=== PATIENT | female | born 1975 | race Caucasian/White ===

== ENCOUNTER 2022-10-21 15:54 | Emergency (ER) | payer OTHER, SELFPAY ==
--- NOTE | ~2022-10-21 | XR_ITS ---
EXAMINATION: XR hand LT min 3V DATE: 10/21/2022 16:55 INDICATION: Left hand injury and pain. TECHNIQUE: 3 views of left hand were obtained. COMPARISON: None. FINDINGS: Bone alignment is normal. No fracture. 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 IMPRESSION: 1. No fracture. Reviewed, dictated and finalized at location A. IMPRESSION: 1. No fracture.
--- NOTE | 2022-10-21 16:18 | ED.UPPEXIN ---
HPI - Extremity Injury (Upper) General Chief Complaint: Extremity Injury, Upper Stated Complaint: . Time Seen by Provider: 10/21/22 16:05 Source: patient Mode of arrival: ambulatory Limitations: no limitations History of Present Illness HPI narrative: Patient is a 46-year-old female who presents with left palm pain after having full weight push down on an end of rebar. Patient states they were doing a project outdoor and when slipped from rebar causing her hand to force down on top of rebar sticking up. Patient reports she is still able to use hand fully with full sensation, but does report pain when flexing thumb inward. Also reports superficial laceration to right thumb. Patient has taken Tylenol. Related Data Home Medications Medication Instructions Recorded Confirmed atorvastatin 20 mg tablet 20 mg PO DAILY 10/21/22 10/21/22 esomeprazole magnesium 40 mg 40 mg PO DAILY 10/21/22 10/21/22 capsule,delayed release famotidine 40 mg tablet 40 mg PO DAILY 10/21/22 10/21/22 fluticasone propionate 50 2 spray intranasal DAILY 10/21/22 10/21/22 mcg/actuation nasal spray,suspension Allergies Allergy/AdvReac Type Severity Reaction Status Date / Time acetaminophen [From Percocet] Allergy Itching Verified 10/21/22 16:27 adhesive Allergy Blister Verified 10/21/22 16:27 oxycodone [From Percocet] Allergy Itching Verified 10/21/22 16:27 Review of Systems Review of Systems: All systems reviewed & are unremarkable except as noted in HPI and below Constitutional: Constitutional: Denies body ache(s), Denies chills, Denies fatigue, Denies fever(s), Denies headache(s), Denies malaise and Denies weakness Eyes: Eyes: Denies blurry vision, Denies irritation and Denies loss of vision ENT: Denies otalgia, Denies headache(s), Denies nasal discharge, Denies sinus pain and Denies sore throat Cardiovascular: Cardiovascular: Denies chest pain, Denies irregular heart rhythm and Denies dyspnea Respiratory: Respiratory: Denies dyspnea Gastrointestinal: Gastrointestinal: Denies abdominal pain, Denies melena, Denies hematochezia, Denies diarrhea, Denies nausea and Denies vomiting Musculoskeletal: Musculoskeletal: Denies back pain, Denies myalgias and Reports arthralgias Integumentary/Breasts: Skin/Breast: Denies pruritus, Denies rash and Reports wounds Neurologic: Denies headache(s), Denies loss of vision and Denies weakness Psychiatric: Psychiatric: Reports no additional psychiatric complaints Endocrine: Endocrine: Denies fatigue PMFSH Social History Social History Smoking status: Never smoker Alcohol intake: current Comments At time of signature, agree with nursing past medical, surgical, social and family history. There is no relevant family history pertinent to the presenting complaint. Exam Const: General: cooperative, healthy appearing, comfortable, no acute distress and well nourished Nutritional Appearance: well nourished Orientation/consciousness: patient oriented x3 Limitations: no limitations HENMT: Head: normal to inspection, normocephalic and atraumatic Ears: hearing grossly normal bilaterally and external ears normal Face/Nose/Sinus: Normal external nose present, normal facial exam and face symmetric Face and sinus: normal facial exam and face symmetric Mouth: Yes lip normal Eyes: General: appearance normal, both eyes and all related structures Alignment and Position: alignment normal and position normal Periorbital: periorbital findings normal Eyelids: eyelids normal Pupils: Equal, round and reactive pupils present EOM: EOMs intact bilaterally Neck: Neck: normal visual inspection, full ROM and supple Chest: Chest palpation & inspection: normal inspection of the chest Resp: Effort & Inspection: normal respiratory effort and able to speak in complete sentences Auscultation: clear to auscultation bilaterally Cardio: Rate: regular rate Rhythm: regular rhythm Heart sounds: S1 normal heart sound p
[2022-10-21 16:19] VITALS: BP 116/77; PULSE 65; RESP 18; TEMP 36.4; O2SAT 100
[2022-10-21] MEDS: TETANUS,DIPHTHERIA,AC PERTUSSIS ADULT (0.5 ML) BOOSTRIX IM (17:14)
== END 2022-10-21 17:57 | disposition home or self-care (01) ==
PROVIDERS: Emergency Provider Nurse Practitioner Family; PCP Physician Assistant
DX: S61.011A Laceration without foreign body of right thumb without damage to nail, initial encounter (principal); S60.222A Contusion of left hand, initial encounter; X58.XXXA Exposure to other specified factors, initial encounter; Z23 Encounter for immunization; E78.00 Pure hypercholesterolemia, unspecified; K76.0 Fatty (change of) liver, not elsewhere classified
CPT/HCPCS: 12001; 73130; 90471; 90715; 99213; G0463

== ENCOUNTER 2024-01-05 16:19 | Emergency (ER) | payer OTHER, SELFPAY ==
--- NOTE | ~2024-01-05 | XR_ITS ---
EXAM: XR ankle LT min 3V DATE: 01/05/2024 16:44 HISTORY: pain lateral left ankle , injury [employer], rolled ankle running . COMPARISON: None available. FINDINGS: Normal mineralization. No fracture or dislocation. No lytic or blastic lesion. Joint space s are maintained. Achilles and plantar enthesopathy. No erosion or periosteal change. Soft tissues wi thin normal limits. IMPRESSION: No acute osseous finding in the left ankle. Reviewed, dictated and finalized at location K.
--- NOTE | 2024-01-05 16:24 | ED.LOWEXIN ---
HPI - Extremity Injury (Lower) General Chief Complaint: Extremity Injury, Lower Stated Complaint: LT ANKLE PAIN Time Seen by Provider: 01/05/24 16:30 Source: patient, RN notes reviewed and old records reviewed Mode of arrival: ambulatory Limitations: no limitations History of Present Illness HPI Narrative: 48-year-old female presents to the [facility] with complaints of left ankle pain. Patient states that she was running on a trail with her dog when she rolled her ankle twice. States that she fell a 2nd time, did not hit head. No loss of consciousness. Onset (ago): hour(s) Related Data Home Medications Medication Instructions Recorded Confirmed atorvastatin 20 mg tablet 40 mg PO DAILY 10/21/22 01/05/24 Allergies Allergy/AdvReac Type Severity Reaction Status Date / Time acetaminophen [From Percocet] AdvReac Mild Itching Verified 01/05/24 16:25 adhesive AdvReac Mild Blister Verified 01/05/24 16:25 oxycodone [From Percocet] AdvReac Mild Itching Verified 01/05/24 16:25 Review of Systems Review of Systems: All systems reviewed & are unremarkable except as noted in HPI and below Constitutional: Constitutional: Reports no additional constitutional complaints Eyes: Eyes: Reports no additional eye complaints ENT: Reports system reviewed and no additional complaints, except as documented Cardiovascular: Cardiovascular: Reports no additional cardiovascular complaints, Denies chest pain and Denies dyspnea Respiratory: Respiratory: Reports no additional respiratory complaints, Denies chest congestion, Denies cough and Denies dyspnea Gastrointestinal: Gastrointestinal: Reports no additional gastrointestinal complaints, Denies abdominal pain, Denies nausea and Denies vomiting Musculoskeletal: Musculoskeletal: Reports as per HPI Integumentary/Breasts: Skin/Breast: Reports system reviewed and no additional complaints, except as docu Neurologic: Reports system reviewed and no additional complaints, except as documented Psychiatric: Psychiatric: Reports no additional psychiatric complaints Allergic/Immunologic: Allergic/Immunologic: Reports no additional allergic/immunologic complaints PMFSH Past Medical History Medical History High cholesterol Surgical History Surgical History H/O: hysterectomy Social History Social History Smoking status: Never smoker Alcohol intake: current Comments At the time of my signature, I reviewed and agree with the nursing past medical, surgical, social, and family history. There is no relevant family history pertinent to the patient complaint. Exam Const: General: cooperative, healthy appearing, comfortable, no acute distress, well developed, alert and well nourished Nutritional Appearance: well nourished Orientation/consciousness: patient oriented x3 Limitations: no limitations HENMT: Head: normal to inspection Ears: hearing grossly normal bilaterally and external ears normal Face/Nose/Sinus: Normal external nose present, Normal nares present, Normal nasal mucous membranes and turbinates present, normal facial exam and face symmetric Face and sinus: normal facial exam and face symmetric Eyes: General: appearance normal, both eyes and all related structures Alignment and Position: alignment normal Periorbital: periorbital findings normal Neck: Neck: normal visual inspection, full ROM, no lymphadenopathy and no meningeal signs Chest: Chest palpation & inspection: normal inspection of the chest Resp: Effort & Inspection: normal respiratory effort and able to speak in complete sentences Cardio: Rate: regular rate Skin: General skin exam: normal color and no rashes or lesions noted Lesions: no lesions Rashes: no rashes Trauma: no lacerations or abrasions Wounds: no wounds Neuro: General: patient oriented x3,
[2024-01-05 16:29] VITALS: BP 100/73; PULSE 87; RESP 16; TEMP 36.5; O2SAT 99
== END 2024-01-05 17:02 | disposition home or self-care (01) ==
PROVIDERS: Emergency Provider Nurse Practitioner
DX: S93.402A Sprain of unspecified ligament of left ankle, initial encounter (principal); S96.912A Strain of unspecified muscle and tendon at ankle and foot level, left foot, initial encounter; X50.9XXA Other and unspecified overexertion or strenuous movements or postures, initial encounter; Y93.02 Activity, running; E78.00 Pure hypercholesterolemia, unspecified
CPT/HCPCS: 73610; 99213; G0463

== ENCOUNTER 2024-10-23 13:24 | Emergency (ER) | payer OTHER, SELFPAY ==
--- NOTE | ~2024-10-23 | XR_ITS ---
XR foot LT min 3V 10/23/2024 13:38 Indication: Left fifth metatarsal pain Procedure: 4 views left foot Comparison: No prior studies for comparison. Findings: There is anatomic alignment. There are degenerative calcaneal enthesophytes. No acute fract ure, subluxation or dislocation. Lisfranc joint intact. No foreign bodies. Impression: 1: No acute bone or joint abnormality. Reviewed, dictated and finalized at location A. Impression: 1: No acute bone or joint abnormality.
--- NOTE | 2024-10-23 13:25 | ED.LOWEXIN ---
HPI - Extremity Injury (Lower) General Chief Complaint: Extremity Injury, Lower Stated Complaint: foot injury Time Seen by Provider: 10/23/24 13:25 Source: patient and RN notes reviewed Mode of arrival: ambulatory Limitations: no limitations History of Present Illness HPI Narrative: Olive is in a 48-year-old female patient presenting to the clinic today with complaints of foot pain after accidentally kicking a concrete statue in her garage 30 minutes ago. She reports pain is to the distal 4th/5th metatarsal/fifth toe. Has not taken any medications for pain or iced it. She is concerned that it may be broken. Pain with ambulation and causes pain to radiate up foot-sharp shooting pain. Rates pain 7-8/10 with movement or touching. Related Data Home Medications ?Medication ?Instructions ?Recorded ?Confirmed ?Last Taken ?Type atorvastatin 80 mg tablet mg 10/23/24 Unknown History Allergies Allergy/AdvReac Type Severity Reaction Status Date / Time adhesive Allergy Mild Blister Verified 10/23/24 13:34 acetaminophen (From Percocet) AdvReac Mild Itching Verified 10/23/24 13:34 oxycodone (From Percocet) AdvReac Mild Itching Verified 10/23/24 13:34 PMFSH Past Medical History Medical History High cholesterol Surgical History Surgical History H/O: hysterectomy Social History Social History Smoking status: Never smoker Alcohol intake: current Comments At the time of my signature, I reviewed and agree with the nursing past medical, surgical, social, and family history. There is no relevant family history pertinent to the patient complaint. Exam Narrative: General: Well-developed, well nourished, in no apparent distress Head: Normocephalic, atraumatic. Cardio: Regular rate and rhythm, s1 and s2 normal, no murmur appreciated. Resp: Clear to auscultation bilaterally, no rhonchi, rales, wheezing or rubs. Musculoskeletal: No deformity, mild redness and swelling noted to the distal 4/5 metatarsal with tenderness to palpation over this area and tenderness over the left 5th toe, pains worse with movement to the left 5th toe, limited range of motion due to pain, muscle strength strong and equal, peripheral pulse strong, no edema, no cyanosis, normal gait and station Course Course Emergency Course: Portions of this record may have been created with voice recognition software. Level of Care: Express Care Visit Vital Signs Vital signs: Vital Signs Temperature 37.0 C 10/23/24 13:39 Pulse Rate 74 10/23/24 13:39 Respiratory Rate 16 10/23/24 13:39 Blood Pressure 115/79 10/23/24 13:39 Pulse Oximetry 97 10/23/24 13:39 Oxygen Delivery Room Air 10/23/24 13:39 Temperature 37.0 C 10/23/24 13:39 Pulse Rate 74 10/23/24 13:39 Respiratory Rate 16 10/23/24 13:39 Blood Pressure 115/79 10/23/24 13:39 Pulse Oximetry 97 10/23/24 13:39 Oxygen Delivery Room Air 10/23/24 13:39 Vital signs reviewed MDM - Extremity Injury (Lower) MDM Narrative Medical decision making narrative: At the time of visit patient is resting comfortably on the exam table. Patient appears to be nontoxic. Patient reporting pain to the distal 4th/ 5th metatarsal and 5th phalanx after kicking a concrete statue accidentally-30 minutes prior to arrival. Mild redness and swelling noted. Pain is worse with bearing weight, palpation, and moving the 5th toes. CSPM of the left foot normal. Left foot x-ray was ordered. Diagnostics: X-ray of the left foot was performed and negative for any sign of fracture or malalignment. Plan: I suspect patient has left foot/5th toe contusion. Ice pack, David wrap, and postop shoe was given. Supportive measures were discussed with the patient and they voiced understanding discharge instructions and agrees to treatment plan. Return precautions reviewed Differential Diagnosis Differential diagnosis: Likely fracture of toe and other (Foot fracture, foot contusion, soft tissue injury, foot sprain, toe sprain) Imaging Data Radiologist's impression: ITS Impressions Foot X-Ray 10/23/24 13:47 Impression: 1: No acute bone or joint abnormality. Discharge Plan Discharge Clinical Impression: Contusion of foot including toes Qualifiers: Encounter type: initial encounter Laterality: left Qualified Code(s): S90.32XA - Contusion of left foot, initial encounter Patient Disposition: Home Condition: Stable Instructions: Antibiotic Form, Foot Contusion (ED) Additional Instructions: X-ray of the left foot is negative for any sign of fracture or malalignment. Rest, ice, elevate, and wear david wrap and postop shoe as directed Tylenol/motrin for pain as discussed. Gradually bear weight No running or sports until healed. Follow up with your PCP if symptoms persist more than 1 week. Patient Language: Malaysian Prescriptions: No Action atorvastatin 80 mg tablet Follow-up/Referrals: UNKNOWN,DOCTOR [Non-Staff] - Time of Disposition: 13:52 Quality NIHSS Nursing Documentation ED NIHSS nursing documentation: reviewed/agree
--- OUTSIDE RECORDS SUMMARY | 2024-10-23 13:26 | XMS_ITS | Encounter Summary ---
Author Organization [facility] Care Team Providers Care Clinical Services Professional Name Role Phone Guzman Haywood Primary Care Provider [phone] Ju Vaughn NP Primary Care Provider [phone] Encounter Details Date Type Department Care Team (Latest Contact Info) Description 02/09/2017 Orders Only [facility] ProviderMiguel MD [address] [place], [place] [id number] Social History Tobacco Use Types Packs/Day Years Used Date Smoking Tobacco: Never Assessed Comments Unknown Sex and Gender Information Value Date Recorded Sex Assigned at Not on file Legal Sex Female 7:14 PM [employer] Gender Identity Not on file Sexual Orientation Not on file documented as of this encounter Plan of Treatment Not on file documented as of this encounter Procedures Procedure Name Priority Date/Time Associated Diagnosis Comments SCAN - LABS 02/10/2017 12:00 AM [employer]OUTE SUPER[employer]OR CARDIOLOGY REPORT 02/10/2017 12: 00 AM [employer]OUTE SUPERVISOR documented in this encounter Results * SCAN - LABS (02/10/2017 12:00 AM ROUTE SUPERVISOR) Narrative 02/10/2017 12:00 AM ROUTE SUPERVISOR Ordered by an unspecified provider. Historical Provider Final Res ult * CARDIOLOGY REPORT (02/10/2017 12:00 AM ROUTE SUPERVISOR) Anatomical Region Laterality Modality Other Narrative 02/10/2017 12:00 AM ROUTE SUPERVISOR Ordered by an unspecified provider. us Historical Provider [facility] Final Result documented in this encounter Visit Diagnoses Not on filedocumented in this encounter Additional Health Concerns Infection Onset Date Last Indicated Resolved Time COVID: Suspected 01/19/2021 01/22/2021 01/22/2021 6:41 PM CDT COVID: Suspected 03/08/2021 03/08/2021 03/08/2021 9:44 PM ROUTE SUPER[employer]OR COVID: Suspected 03/28/2021 03/28/2021 03/29/2021 2:08 AM ROUTE SUPERVISOR COVID: Suspected 04/19/2021 04/19/2021 04/20/2021 5:27 AM ROUTE SUPERVISOR COVID: Suspected 02/24/2023 02/24/2023 02/24/2023 4:59 PM ROUTE SUPERVISOR documented as of this encounter Care Teams Clinical Services Professional Relationship Specialty Start Date End Date Guzman Haywood PA PCP - General Family Medicine 12/22/18 10/02/23 Ju Vaughn NP [address] [place] [id number] PCP - General Family Medicine 10/03/23 documented as of this encounter
--- OUTSIDE RECORDS SUMMARY | 2024-10-23 13:26 | XMS_ITS | Referral Summary ---
Author Organization [facility] Address [address] [place] [phone] Care Team Providers Care Financial Aid Administrator Name Role Phone Ju Vaughn NP Primary Care Provider [phone] Encounters Date Type Department Care Team Description 10/14/2024 11:00 AM CDT Therapy [facility] Otolaryngology [address] [facility] Building [address] [place] [address] Caro Mays, FARZANEH Hoarseness (Primary Dx) 09/21/2024 11:30 AM CDT Office Visit [facility] Cardiology [address] [place] [address] [phone] Yaniv Mckinney MD Palpitations (Primary Dx); Abnormal EKG; Mixed hyperlipidemia 09/15/2024 Results Follow-Up [facility] Cardiology [address] [place] [address] [phone] Yaniv Mckinney MD Hepatic function panel, Lipid panel, T4, free, Thyroid Function [place] 09/15/2024 12:00 PM CDT Lab [facility] [address] [place] [id number] Palpitations; Mixed hyperlipidemia; Irregular heart beat; Abnormal EKG; Dyspnea on exertion 09/13/2024 10:00 AM CDT Therapy [facility] Otolaryngology [address] [place] [address] 11th [place] [address] [place] [address] Caro Mays, OPERATIONS AND MAINTENANCE MANAGER Hoarseness (Primary Dx) 08/13/2024 10:00 AM CDT Therapy [facility] Otolaryngology [facility] Building [address] [place] [phone] Caro Mays, OPERATIONS AND MAINTENANCE MANAGER Hoarseness (Primary Dx) from Last 3 Months Allergies Active Allergy Reactions Criticality Noted Date Comments Adhesive Other (See comments) Low 08/15/2017 Redness and blisters Cat Dander Rash Medium 04/11/2023 Dog Dander Rash Medium 04/11/2023 Oxycodone-Acetaminoph en Itching Low 11/07/2020 Medications albuterol HFA (PROVENTIL HFA,VENTOLIN HFA,PROAIR HFA) 90 mcg/actuation inhalerIndications :Lower respiratory infection (e.g., bronchitis, pneumonia, pneumonitis, pulmonitis) Inhale 2 puffs every 6 (six) hours as needed for wheezing or shortness of breath 1 each 3 Active atorvastatin (LIPITOR) 80 mg tabletIndications: Mixed hyperlipidemia Take 1 tablet (80 mg total) by mouth nightly 90 tablet 3 5 Active Active Problems Problem Noted Date Diagnosed Date Mucous cyst of tonsil 06/08/2024 Attention or concentration deficit 05/03/2024 Assessment & Plan (05/03/2024 9:55 AM COMMUNITY SERVICE SPECIALIST): Chronic, uncontrolled. Patient to begin Strattera 40 mg daily. Patient to call office if her focus and brain fog do not improve with Strattera use. Follow up in 6 months. Fatty liver 04/11/2023 Assessment & Plan (04/11/2023 8:17 AM COMMUNITY SERVICE SPECIALIST): Noted on ultrasound 09/2022. LFTs have been mildly elevated in 2017 with AST 44, ALT 64; most recent LFTs were normal. -trend LFTs -we will order ultrasound elastography -The natural history of fatty liver disease has been discussed in detail with the patient. The patient understands the potential risks for cirrhosis in the future. RECOMMENDATIONS given include: PEREZ counceling: Discussed risk factors: Increased cholesterol and triglycerides, obesity, PCOS, Type 2 diabetes, hypothyroidism, sleep apnea, and gastric bypass surgery. Encourage healthy diet low in saturated fat and carbs. Establish an excercise routine. Hepatomegaly 04/11/2023 Assessment & Plan (04/11/2023 8:19 AM COMMUNITY SERVICE SPECIALIST): Noted on ultrasound September 2022. Could be secondary to fatty liver. -we will order chronic liver workup to rule out other etiologies Attention deficit disorder 09/03/2022 Assessment & Plan (04/02/2024 9:09 AM COMMUNITY SERVICE SPECIALIST): Chronic, uncontrolled. Patient prescribed Strattera 40 mg daily. Patient provided with education on medication administration and potential side effects. Patient to follow up in one month to reassess ADD symptoms. Assessment & Plan (02/26/2023 10:10 AM COMMUNITY SERVICE SPECIALIST): Offered mental health eval Assessment & Plan (09/03/2022 9:22 AM CDT): Sending to Dr Rodriguez for eval RUQ pain 09/03/2022 Assessment & Plan (09/03/2022 9:31 AM CDT): Suspect gallbladder, will get RUQ us Family history of coronary artery disease 2021 Atypical chest pain 07/11/2021 Mixed hyperlipidemia 07/11/2021 Assessment & Plan (05/03/2024 9:53 AM COMMUNITY SERVICE SPECIALIST): Chronic, improving. Patient to continue on atorvastatin 40 mg daily and low fat diet. Follow up in 6 months. Lab Results Component Value Date CHOL 239 (H) 05/01/2024 CHOL 266 (H) 09/22/2023 CHOL 259 (H) 10/01/2022 Lab Results Component Value Date HDL 60 05/01/2024 HDL 53 09/22/2023 HDL 56 10/01/2022 Lab Results Component Value Date LDLCALC 143 (H) 05/01/2024 LDLCALC 144 (H) 09/22/2023 LDLCALC 145 (H) 10/01/2022 LDLDIRECT 117 (H) 09/01/2013 Lab Results Component Value Date TRIG 203 (H) 05/01/2024 TRIG 344 (H) 09/22/2023 TRIG 290 (H) 10/01/2022 Assessment & Plan (04/02/2024 9:07 AM COMMUNITY SERVICE SPECIALIST): Chronic, improving. Patient to continue on atorvastatin 40 mg daily and low fat diet. Lipid panel to be redrawn. Follow up in 6 months. Lab Results Component Value Date CHOL 266 (H) 09/22/2023 CHOL 259 (H) 10/01/2022 CHOL 258 (H) 08/29/2021 Lab Results Component Value Date HDL 53 09/22/2023 HDL 56 10/01/2022 HDL 46 08/29/2021 Lab Results Component Value Date LDLCALC 144 (H) 09/22/2023 LDLCALC 145 (H) 10/01/2022 LDLCALC 134 (H) 08/29/2021 LDLDIRECT 117 (H) 09/01/2013 Lab Results Component Value Date TRIG 344 (H) 09/22/2023 TRIG 290 (H) 10/01/2022 TRIG 391 (H) 08/29/2021 Assessment & Plan (10/03/2023 10:28 AM CDT): Chronic, uncontrolled. Patient to increase atorvastatin from 20 mg to 40 mg daily. Patient to continue on low fat diet and increase daily exercise. Lipid panel to be redrawn in 3 months. Follow up in 6 months. Lab Results Component Value Date CHOL 266 (H) 09/22/2023 CHOL 259 (H) 10/01/2022 CHOL 258 (H) 08/29/2021 Lab Results Component Value Date HDL 53 09/22/2023 HDL 56 10/01/2022 HDL 46 08/29/2021 Lab Results Component Value Date LDLCALC 144 (H) 09/22/2023 LDLCALC 145 (H) 10/01/2022 LDLCALC 134 (H) 08/29/2021 LDLDIRECT 117 (H) 09/01/2013 Lab Results Component Value Date TRIG 344 (H) 09/22/2023 TRIG 290 (H) 10/01/2022 TRIG 391 (H) 08/29/2021 Assessment & Plan (04/17/2023 9:01 AM COMMUNITY SERVICE SPECIALIST): Patient is to continue present medications, work on diet and exercise as discussed, we did discuss the medications and potential side effects and signs and symptoms that would warrant calling office. Follow up routine. Assessment & Plan (10/01/2022 10:12 AM CDT): healthy diet and exercise Assessment & Plan (09/03/2022 9:24 AM CDT): Off statin, seeing Dr Mckinney Assessment & Plan (07/08/2022 9:22 AM CDT): Patient is to continue present medications, work on diet and exercise as discussed, we did discuss the medications and potential side effects and signs and symptoms that would warrant calling office. Follow up routine. Assessment & Plan (03/12/2022 2:22 PM COMMUNITY SERVICE SPECIALIST): Patient is to restart present medications, work on diet and exercise as discussed, we did discuss the medications and potential side effects and signs and symptoms that would warrant calling office. Follow up routine. Assessment & Plan (09/27/2021 7:04 AM CDT): We did discuss taking a statin patient is doing fish oil in diet I will refer to nutritional medicine follow-up routine Assessment & Plan (08/29/2021 9:47 AM CDT): This is diet controlled we get labs at annual physical Abnormal EKG 07/11/2021 Atypical nevi 06/18/2021 Assessment & Plan (10/01/2022 10:10 AM CDT): Skin exam today Assessment & Plan (03/12/2022 2:22 PM COMMUNITY SERVICE SPECIALIST): We went through the differential diagnosis we agreed to use liquid nitrogen if the lesion does not resolve she will come in for biopsy Assessment & Plan (06/19/2021 3:05 PM CDT): Annual molenap Irregular heart beat 05/28/2021 Assessment & Plan (09/27/2021 7:04 AM CDT): Patient had full cardiac workup will continue to monitor Assessment & Plan (08/29/2021 9:46 AM CDT): Patient is stable seen Cardiology as scheduled for stress test she understands signs and symptoms that would warrant urgent attention Dysphagia 01/20/2021 Assessment & Plan (05/03/2024 9:54 AM COMMUNITY SERVICE SPECIALIST): Chronic, improving with esophageal dilation, currently following with Dr. Chandler TOBAR. Assessment & Plan (09/27/2021 7:04 AM CDT): This is currently resolved will continue to follow Assessment & Plan (08/29/2021 9:46 AM CDT): This is improved she recently had an EGD I am going to change her PPI she will update me in 2 weeks Assessment & Plan (05/28/2021 7:38 AM COMMUNITY SERVICE SPECIALIST): This is currently controlled Assessment & Plan (01/20/2021 6:38 AM CDT): Chronic, stable persistent-recommended appointment with TONY Haywood to discuss dysphagia, to continue to follow-up with ENT, and to take daily anti-reflux medications as directed. Neck pain 01/08/2021 Assessment & Plan (01/08/2021 9:57 AM CDT): OTC aleve, x-rays, ice/heat, option for PT, flexeril at hs Laryngopharyngeal reflux (LPR) 11/21/2020 Assessment & Plan (05/03/2024 9:54 AM COMMUNITY SERVICE SPECIALIST): Chronic, following with Dr. Chandler TOBAR. Currently taking famotidine 40 mg daily. Assessment & Plan (06/19/2021 3:05 PM CDT): Getting EGD Assessment & Plan (05/28/2021 7:38 AM COMMUNITY SERVICE SPECIALIST): As above Hoarseness 11/07/2020 Allergic rhinitis due to animal hair and dander 11/07/2020 Assessment & Plan (09/27/2021 7:03 AM CDT): Continue current medication Assessment & Plan (08/29/2021 9:46 AM CDT): Currently no medications will continue to follow Assessment & Plan (05/28/2021 7:38 AM COMMUNITY SERVICE SPECIALIST): Continue p.r.n. medication Adult BMI 27.0-27.9 kg/sq m 07/11/2020 Assessment & Plan (07/11/2020 8:59 AM CDT): Healthy diet and exercise Routine general medical exam ination at a health care facility 07/10/2020 Assessment & Plan (04/02/2024 9:11 AM COMMUNITY SERVICE SPECIALIST): CBC, CMP, lipid panel ordered. Mammogram last completed: 12/2023 Pap last completed: N/A due to hysterectomy. Colonoscopy last completed: 11/2022 Vaccinations: Tdap vaccine UTD. Flu vaccine given in office today. Repeat wellness exam in one year. Assessment & Plan (10/01/2022 10:12 AM CDT): HEALTHCARE MAINTENANCE updated Assessment & Plan (07/11/2020 9:00 AM CDT): Healthy diet and exercise, mammogram and labs Paresthesia of skin 01/02/2018 MVP (mitral valve prolapse) 02/10/2017 Assessment & Plan (04/02/2024 9:07 AM COMMUNITY SERVICE SPECIALIST): Chronic, patient following with cardiology. Palpitations 02/10/2017 Overview (06/27/2020): this is periodic dn no issues, had full cardiac eval Assessment & Plan (04/17/2023 9:00 AM COMMUNITY SERVICE SPECIALIST): Currently controlled Assessment & Plan (02/26/2023 10:10 AM COMMUNITY SERVICE SPECIALIST): Off and on, had full cardiac work up Assessment & Plan (06/19/2021 3:05 PM CDT): Well controlled Assessment & Plan (01/08/2021 9:58 AM CDT): controlled Assessment & Plan (07/11/2020 8:59 AM CDT): Not an issue Seasonal allergic rhinitis due to pollen 017 Overview (06/27/2020): OTC meds Assessment & Plan (06/19/2021 3:07 PM CDT): Controlled with meds Shortness of breath 02/10/2017 Moderate episode of recurrent major depressive d isorder 12/18/2016 Overview (06/27/2020): no longer on meds Assessment & Plan (04/17/2023 9:00 AM COMMUNITY SERVICE SPECIALIST): Well controlled, no SI/HI, Assessment & Plan (02/26/2023 10:09 AM COMMUNITY SERVICE SPECIALIST): Controlled and appropriate for losing mother, no SI/HI Assessment & Plan (10/01/2022 10:12 AM CDT): No onger an issues Assessment & Plan (09/03/2022 9:24 AM CDT): Appears better off medications, no SI/HI, will follow Assessment & Plan (07/08/2022 9:23 AM CDT): Images from the original note were not included. Recurrent with loss of mother, re-start medications, no SI/HI, has taken in the past The pharmacologic and nonpharmacologic treatment of anxiety/depression were discusses with the patient. Included was a discussion of the current treatment regimens and their proposed mechanism of action concerning brain chemistry. Discussed the role of counseling as an adjunct to medications should we agree to pursue this. The patient is non-suicidal, and agrees to inform us of any change in this status follow up in 4-6 weeks- sooner if any problems Assessment & Plan (03/12/2022 2:22 PM COMMUNITY SERVICE SPECIALIST): This is currently well controlled off med Assessment & Plan (01/08/2021 9:57 AM CDT): Well controlled Assessment & Plan (07/11/2020 8:59 AM CDT): Controlled and mild GERD (gastroesophageal reflux disease) 7 Overview (06/27/2020): no longer on meds Assessment & Plan (04/02/2024 9:06 AM COMMUNITY SERVICE SPECIALIST): Chronic, patient following with GI currently taking famotidine 40 mg daily. Assessment & Plan (04/17/2023 8:57 AM COMMUNITY SERVICE SPECIALIST): Images from the original note were not included. Avoid spicy, fried, greasy foods Keep hydrated with clear liquids Elevate HOB 2- 3 inches Avoid or cut down on caffeines, chocolates, and ETOH No late meals, or heavy meals after 7 pm Reg daily exercise No tight fitting clothing Stop smoking - if smoker Watch for worsening symptoms - ie diarrhea, vomiting, nausea, blood per rectum, vomiting up blood ,fever, arthralgias, rash etc. RTC prn or if new symptoms arise Pt or parent verbalizes understanding Assessment & Plan (04/11/2023 8:18 AM COMMUNITY SERVICE SPECIALIST): Chronic GERD, continues to have heartburn in the mornings and voice changes despite PPI b.i.d. and Pepcid b.i.d. for several months. EGD by Dr. Boo November 2022 with normal esophagus. -continue PPI b.i.d. and Pepcid b.i.d. -RECOMMENDATIONS given include: anti-reflux maneuvers, Avoid acidic foods like oranges and tomatoes., avoidance of spicy foods, avoid eating 3-4 hours before bed, elevation of the head of the bed, and weight loss -we will refer to Dr. Arteaga for consideration of esophageal manometry and pH testing; pending results patient may benefit set from surgical options such as fundoplication Assessment & Plan (02/26/2023 10:09 AM COMMUNITY SERVICE SPECIALIST): Not contyrolled, had EGD, will double nexium x 2 weeks, if this does not help consider manomety Assessment & Plan (10/01/2022 10:11 AM CDT): Not controlled, re-start nexium, h-pylori and EGD Assessment & Plan (09/03/2022 9:24 AM CDT): Images from the original note were not included. Avoid spicy, fried, greasy foods Keep hydrated with clear liquids Elevate HOB 2- 3 inches Avoid or cut down on caffeines, chocolates, and ETOH No late meals, or heavy meals after 7 pm Reg daily exercise No tight fitting clothing Stop smoking - if smoker Watch for worsening symptoms - ie diarrhea, vomiting, nausea, blood per rectum, vomiting up blood ,fever, arthralgias, rash etc. RTC prn or if new symptoms arise Pt or parent verbalizes understanding Assessment & Plan (07/08/2022 9:22 AM CDT): Not controlled, re-start meds Assessment & Plan (03/12/2022 2:22 PM COMMUNITY SERVICE SPECIALIST): Images from the original note were not included. Avoid spicy, fried, greasy foods Keep hydrated with clear liquids Elevate HOB 2- 3 inches Avoid or cut down on caffeines, chocolates, and ETOH No late meals, or heavy meals after 7 pm Reg daily exercise No tight fitting clothing Stop smoking - if smoker Watch for worsening symptoms - ie diarrhea, vomiting, nausea, blood per rectum, vomiting up blood ,fever, arthralgias, rash etc. RTC prn or if new symptoms arise Pt or parent verbalizes understanding Assessment & Plan (09/27/2021 7:04 AM CDT): Images from the original note were not included. Avoid spicy, fried, greasy foods Keep hydrated with clear liquids Elevate HOB 2- 3 inches Avoid or cut down on caffeines, chocolates, and ETOH No late meals, or heavy meals after 7 pm Reg daily exercise No tight fitting clothing Stop smoking - if smoker Watch for worsening symptoms - ie diarrhea, vomiting, nausea, blood per rectum, vomiting up blood ,fever, arthralgias, rash etc. RTC prn or if new symptoms arise Pt or parent verbalizes understanding Assessment & Plan (08/29/2021 9:46 AM CDT): This is uncontrolled she had essentially a normal EGD in the last couple weeks I am going to change her PPI as her symptoms have been worsening she will update me in 2 weeks she is on a GERD diet Assessment & Plan (06/19/2021 3:05 PM CDT): CPM, getting EGD Assessment & Plan (05/28/2021 7:38 AM COMMUNITY SERVICE SPECIALIST): This is controlled with diet and meds needs a refill on medication Assessment & Plan (01/08/2021 9:57 AM CDT): Images from the original note were not included. Avoid spicy, fried, greasy foods Keep hydrated with clear liquids Elevate HOB 2- 3 inches Avoid or cut down on caffeines, chocolates, and ETOH No late meals, or heavy meals after 7 pm Reg daily exercise No tight fitting clothing Stop smoking - if smoker Watch for worsening symptoms - ie diarrhea, vomiting, nausea, blood per rectum, vomiting up blood ,fever, arthralgias, rash etc. RTC prn or if new symptoms arise Pt or parent verbalizes understanding Assessment & Plan (07/11/2020 8:59 AM CDT): Images from the original note were not included. Avoid spicy, fried, greasy foods Keep hydrated with clear liquids Elevate HOB 2- 3 inches Avoid or cut down on caffeines, chocolates, and ETOH No late meals, or heavy meals after 7 pm Reg daily exercise No tight fitting clothing Stop smoking - if smoker Watch for worsening symptoms - ie diarrhea, vomiting, nausea, blood per rectum, vomiting up blood ,fever, arthralgias, rash etc. RTC prn or if new symptoms arise Pt or parent verbalizes understanding Resolved Problems Problem Noted Date Diagnosed Date Resolved Date Screening for colon cancer 04/11/2023 1 06/03/2023 Assessment & Plan (04/11/2023 8:19 AM COMMUNITY SERVICE SPECIALIST): Normal colonoscopy by Dr. Boo November 2022. -repeat colonoscopy November 2032 Tinea corporis 06/05/2021 03/29/2024 Assessment & Plan (06/05/2021 2:59 PM COMMUNITY SERVICE SPECIALIST): - likely ring worm - will tx with clotrimazole - pt to f/u with derm for further eval. Eustachian tube disorder, left 01/20/2021 03/29/2024 Assessment & Plan (01/20/2021 6:39 AM CDT): Acute-started on prednisone 20 mg once daily x 5 days and Sudafed as directed as needed for the next 3-5 days. Advised can start Flonase OR Nasacort 2 sprays each nostril daily x 4 weeks. Recommended follow-up with PCP if symptoms worsen, don't improve, or new symptoms develop. Acute pain of left knee 01/08/202103/08 Assessment & Plan (01/08/2021 9:59 AM CDT): X-ray and aleve, option for PT Right foot pain 06/27/2020 04/02/2024 Assessment & Plan (06/27/2020 2:39 PM CDT): Pain after jumping about 3 feet, most her pain is upper anterior foot, she had immediate pain Post-operative state 10/07/2017 024 Immunizations Immunization Administration Dates Next Due Influenza, Quadrivalent, Spl it, Intramuscular 12/29/2018 Influenza, Quadrivalent, Spl it, Preservative Free, Intramuscular 01/08/2021 Influenza, Trivalent, IM (MDV) 03/22/2015 Influenza, Trivalent, Preser vative Free, Intramuscular 03/29/2024 Influenza, Unspecified 03/17/2023(Deferr ed: Patient decision),02/26/2023(Deferred: Patient decision),03/06/2022(Deferred: Patient decision),02/26/2022(Deferred: Patient decision),02/07/2022(Deferred: Patient decision),01/08/2021,03/23/2020,2018 Pfizer SARS-CoV-2 Monovalent Vaccination (12+ Yrs) PURPLE 02/11/2021,06/19/2020,05/29/2020 Tdap 10/29/2023,10/21/2022 Social History Tobacco Use Types Packs/Day Years Used Date Smoking Tobacco: Never Smokeless Tobacco: Never AUDIT-C Answer Date Recorded Q1: How often do you have a drink containing alc ohol? Never 04/17/2023 Average Number of Drinks Not on file 024 Frequency of Binge Drinking Not on file 04/07 PHQ-2 Answer Date Recorded PHQ-2 Total Score (If total score is 3 or more points, staff should administer the PHQ-9) 0 03/29/2024 Personal Safety Answer Date Recorded Have you ever been in or are you currently in a harmful physical or emotional relationship or is someone making you feel afraid or unsafe? Denies 11/21/2022 Comments No Sex and Gender Information Value Date Recorded Sex Assigned at Not on file Legal Sex Female 7:14 PM COMMUNITY SERVICE SPECIALIST Gender Identity Not on file Sexual Orientation Not on file Last Filed Vital Signs Vital Sign Reading Time Taken Comments Blood Pressure 118/64 09/21/2024 12:29 PM CDT Pulse 79 09/21/2024 12:29 PM CDT Temperature 36.7 C (98 F) 06/08/2024 2:27 PM COMMUNITY SERVICE SPECIALIST Respiratory Rate 18 05/03/2024 8:39 AM COMMUNITY SERVICE SPECIALIST Oxygen Saturation 95% 06/17/2024 7:51 AM CDT Inhaled Oxygen Concentration - - Weight 82.8 kg (182 lb 9.6 oz) 09/21/2024 12:29 PM CDT Height 172.7 cm (5' 7.99) 09/21/2024 12:29 PM C DT Body Mass Index 27.77 09/21/2024 12:29 PM CDT Plan of Treatment Not on file Medical Devices Implanted Type Area Agency Service Coordinator Device Identifier Shelf Expiration Date Model / Serial / Lot Bladder Sling Bladder Cadaver Patch Bladder Bovine Collagen Patch N/A: Bladder Procedures Procedure Name Priority Date/Time Associated Diagnosis Comments THYROID FUNCTION CASCADE Routine 09/15/2024 12:08 PM CDT Palpitations Mixed hyperlipidemia Irregular heart beat Abnormal EKG Dyspnea on exertion T4, FREE Routine 09/15/2024 12:08 PM CDT Palpitations Mixed hyperlipidemia Irregular heart beat Abnormal EKG Dyspnea on exertion LIPID PANEL Routine 09/15/2024 12:08 PM CDT Palpitations Mixed hyperlipidemia Irregular heart beat Abnormal EKG Dyspnea on exertion HEPATIC FUNCTION PANEL Routine 09/15/2024 12:08 PM CDT Palpitations Mixed hyperlipidemia Irregular heart beat Abnormal EKG Dyspnea on exertion SCREENING MAMMOGRAM BILATERAL W JONO Schedule Routine, Read Routine (OP Routine) 12/16/2023 12:52 PM CDT Encounter for screening mammogram for malignant neoplasm of breast HEPATITIS PANEL, ACUTE Routine 04/11/2023 9:10 AM COMMUNITY SERVICE SPECIALIST Hepatomegaly COLONOSCOPY 11/21/2022 7:58 AM CDT from Last 3 Months or Most Recently Relevant to Health Maintenance Results * Thyroid Function [place] (09/15/2024 12:08 PM CDT) TSH 2.50 0.30 - 4.20 mcIUnit/mL Comment:Testing performed by : [facility], [address] [place] [address], [place]., [address] Blood 09/15/2024 12:0 8 PM CDT 09/15/2024 12:48 PM CDT Yaniv Mckinney MD LAB BLOOD ORDERABLES Final Result Performing Organization Address City/[facility] Co de Phone Number JESSICA [facility] [place] [address] * T4, free (09/15/2024 12:08 PM CDT) [facility] Free T4 1.16 0.90 - 1.70 ng/dL Comment:Testing performed by : [address] [address] Blood 09/15/2024 12:0 8 PM CDT 09/15/2024 12:48 PM CDT Yaniv Mckinney MD LAB BLOOD ORDERABLES Final Result Performing Organization Address [facility] Co de Phone Number JESSICA [address] [address] * Hepatic function panel (09/15/2024 12:08 PM CDT) [facility] Bilirubin, total 0.6 0.1 - 1.2 mg/dL Comment:Testing performed by : [address] [address] Bilirubin, direct 0.1 0.1 - 0.3 mg/dL JESSICA Comment:Testing performed by : [address] [address] Protein, pl 7.1 6.5 - 8.5 g/dL JESSICA Comment:Testing performed by : [address] [address] Albumin 4.3 3.5 - 5.0 g/dL JESSICA Comment:Testing performed by : [address] [address] Alk phos 116 40 - 130 Units/L JESSICA Comment:Testing performed by : [address] [address] ALT 21 7 - 45 Units/L JESSICA Comment:Testing performed by : [address] [address] AST 25 10 - 45 Units/L JESSICA STONE Comment:Testing performed by : [address] [address] Blood 09/15/2024 12:0 8 PM CDT 09/15/2024 12:48 PM CDT us Yaniv Mckinney MD LAB BLOOD ORDERABLES Final Result JESSICA [address] [facility] Department [place] [address] * Lipid panel (09/15/2024 12:08 PM CDT) Cholesterol 184 30 - 199 mg/dL Comment: Interpretive Data Ages < or = 19 years Acceptable: <170 mg/dL Borderline high: 170-199 mg/dL High: >or= 200 mg/dL Ages > or = 20 years Desirable: <200 mg/dL Borderline high: 200-239 mg/dL High: >or= 240 mg/dL Literature References: 1. Expert Panel on Integrated Guidelines for Cardiovascular Health and Risk Reduction in Children and Adolescents. Pediatrics 2011;128:S213 2. NCEP Expert Panel. Circulation 2004;110:227 Current Interpretive Data was last revised on 2017. Testing performed by: [address] [address] Triglycerides 120 <=149 mg/dL JESSICA STONE Comment: Interpretive Data Ages < or = 9 years Acceptable: <75 mg/dL Borderline high: 75-99 mg/dL High: >or= 100 mg/dL Ages 10 to 20 years Acceptable: <90 mg/dL Borderline high: 90-129 mg/dL High: >or= 130 mg/dL Ages > or = 20 years Desirable: <150 mg/dL Borderline high: 150-199 mg/dL High: 200-499 mg/dL Very high: >or= 499 mg/dL Literature References: 1. Expert Panel on Integrated Guidelines for Cardiovascular Health and Risk Reduction in Children and Adolescents. Pediatrics 2011;128:S213 2. NCEP Expert Panel. Circulation 2004;110:227 Current Interpretive Data was last revised on 2017. Testing performed by: [address] [address] HDL 58 >=40 mg/dL JESSICA Comment: Interpretive Data Ages < or = 19 years Acceptable: >45 mg/dL Borderline low: 40-45 mg/dL Low: <40 mg/dL Ages > or = 20 years Desirable: >or= 60 mg/dL Low: <40 mg/dL Literature References: 1. Expert Panel on Integrated Guidelines for Cardiovascular Health and Risk Reduction in Children and Adolescents. Pediatrics 2011;128:S213 2. NCEP Expert Panel. Circulation 2004;110:227 Current Interpretive Data was last revised on 2017. Testing performed by: [facility], [address] [place] [address]., [id number] LDL, calculated 105 <=129 mg/dL JESSICA STONE Comment: Interpretive Data Ages < or = 19 years Acceptable: <110 mg/dL Borderline high: 110-129 mg/dL High: >or= 130 mg/dL Ages > or = 20 years Optimal: <100 mg/dL Near optimal: 100-129 mg/dL Borderline high: 130-159 mg/dL High: >160 mg/dL Calculated using the Danilo LDL-C estimating equation. This equation was implemented on 2023. Prior to this date LDL-C was estimated using the Friedewald equation. Literature References: 1. Expert Panel on Integrated Guidelines for Cardiovascular Health and Risk Reduction in Children and Adolescents. Pediatrics 2011;128:S213 2. NCEP Expert Panel. Circulation 2004;110:227 3. Danilo Ayala et al. KACIE Cardiol. 2019August 05;5(5):540-548. doi: 10.1001/jamacardio.2020.0013 Current Interpretive Data was last revised on 2023. Testing performed by: [facility], [address] [place] [address]., [id number] Non-HDL Cholesterol 126 mg/dL JESSICA Comment: Interpretive Data Ages < or = 19 years Acceptable: <120 mg/dL Borderline high: 120-144 mg/dL High: >145 mg/dL Ages > or = 20 years When triglycerides are >200 mg/dL, Non-HDL cholesterol is a secondary target of therapy with treatment goals that are 30 mg/dL greater than the LDL cholesterol target. Literature References: 1. Expert Panel on Integrated Guidelines for Cardiovascular Health and Risk Reduction in Children and Adolescents. Pediatrics 2011;128:S213 2. NCEP Expert Panel. Circulation 2004;110:227 Current Interpretive Data was last revised on 2017. Testing performed by: [facility], [address] [place] [address]., [id number] Chol/HDL ratio 3 JESSICA CHASE Comment:Testing performed by : [facility], [address] [place] [address]., [id number] Blood 09/15/2024 12:0 8 PM CDT 09/15/2024 12:48 PM CDT us Yaniv Mckinney MD LAB BLOOD ORDERABLES Final Result JESSICA CHASE [address] [facility] Department [place] [address] * Screening Mammogram Bilateral W Jono (12/16/2023 12:52 PM CDT) Anatomical Region Laterality Modality Breast Bilateral Mammography Impressions 12/16/2023 1:24 PM CDT BI-RADS ATLAS category (overall): 1 - Negative There is no mammographic evidence of malignancy. A 1 year screening mammogram is recommended. The patient has been or will be contacted. We recommend annual screening mammography for women at average risk of breast cancer beginning at age 40, based on guidelines of the [employer] (ACR Practice Parameter for the Performance of Screening and Diagnostic Mammography) and [employer]. For women with and elevated risk of breast cancer, please refer to the ACR Practice Parameter for specific screening recommendations. The patient will be entered into a reminder system with a target due date of 1 year for her next screening exam. Narrative 12/16/2023 1:24 PM CDT Screening Mammogram Bilateral W Jono: 12/16/23 The study was acquired using full field digital technology and interpreted from soft copy. 2D digital mammographic views, as well as 3D digital tomosynthesis were performed in the CC and MLO projections. CLINICAL: Encounter for screening mammogram for malignant neoplasm of breast (Mammogram ordered.). No relevant medical history has been documented for this patient. No known family history of breast cancer. COMPARISONS: 08/30/2022 Screening Mammogram Bilateral W Jono 05/29/2021 Screening Mammogram Bilateral W Jono 05/05/2018 Screening Mammogram Bilateral W Jono 06/24/2016 Screening Mammogram Bilateral W Jono BREAST TISSUE: There are scattered areas of fibroglandular density. FINDINGS: No suspicious masses, suspicious calcifications, or other suspicious findings are seen within either breast. There has been no suspicious change. Ju Vaughn NP IMG MAMMO PROCEDURES Final Res ult * Hepatitis panel, acute Blood (04/11/2023 9:10 AM COMMUNITY SERVICE SPECIALIST) Hep A IgM Nonreactive Nonreactive JESSICA Comment: Interpretive Data: If Hep A IgM Ab is reported as Equivocal, a new sample should be drawn in two weeks for testing. Current interpretive data was last revised on 19. Hep B core IgM Nonreactive Nonreactive JESSICA Comment: Interpretive Data If HepB Core IgM Ab is reported as Equivocal, a new sample should be drawn in two weeks for testing. Current interpretive data was last revised on 19. Hep C Ab Nonreactive Nonreactive JESSICA Comment: Antibodies to HCV not detected. Does NOT exclude the possibility of recent exposure to HCV. Current interpretive data was last revised on 21 Interpretive Data Nonreactive: Antibodies to HCV not detected. Does NOT exclude the possibility of recent exposure to HCV. Equivocal: Equivocal for HCV antibodies. Supplemental molecular testing will be automatically performed to determine infection status in accordance with current CDC screening recommendations. Reactive: Positive for HCV antibodies. This may represent current or past HCV infection. Supplemental molecular testing will be automatically performed to determine current infection status in accordance with current CDC screening recommendations. Interpretive data was last revised on 2019. HepBsAg Nonreactive Nonreactive JESSICA Blood 04/11/2023 9:10 AM COMMUNITY SERVICE SPECIALIST 04/11/2023 9:22 AM COMMUNITY SERVICE SPECIALIST Rudy Brantley MD LAB MICROBIOLOGY - GENERAL ORDER FAVIOLA Final Result JESSICA [address] [facility] Department [place] [address] * COLONOSCOPY (11/21/2022 7:58 AM CDT) Anatomical Region Laterality Modality Other Narrative Procedure Note Geovany Boo DO - 11/21/2022 7:58 AM CDT [facility] GI ENDOSCOPY Patient Name: Olive Messer Procedure Date: 11/21/2022 7:58 AM Date of : 1975 Admit Type: Outpatient Age: 46 Gender: Female Attending MD: Geovany Boo D.O. Room: [facility] ENDOSCOPY ROOM 05 Note Status: Finalized Procedure: Colonoscopy Indications: Screening for colorectal malignant neoplasm Referring MD: Guzman Haywood PA-C Providers: Geovany Boo D.O. Medicines: See the Anesthesia note for documentation of the administered medications Complications: No immediate complications. Estimated Blood Loss: Estimated blood loss: none. Procedure: The benefits, risks and alternatives of theprocedure and sedation were discussed and informed consentwas obtained. All questions were answered. Please referto the signed informed consent document in the medical record. The scope was passed under direct vision.The CF-[id number] colonoscope was introduced through theanus and advanced to the cecum, identified byappendiceal orifice and ileocecal valve. The colonoscopy was performed without difficulty. The patient tolerated the procedure well. The quality of the bowel preparation was good. Prep was administered in asplit dose. Findings: The entire examined colon appeared normal on direct and retroflexion views. Impression: - The entire examined colon is normal on direct and retroflexion views. - No specimens collected. Recommendation: - Patient has a contact number available for emergencies. The signs and symptoms of potential delayed complications were discussed with thepatient. Return to normal activities tomorrow. Written discharge instructions were provided to thepatient. - Resume previous diet. - Continue present medications. - [facility] Geovany Boo D.O. 11/21/2022 8:28:09 AM Number of Addenda: 0 Note Initiated On: 11/21/2022 7:58 AM Recognized by the [place] [employer] for promoting quality in endoscopy Geovany Boo DO ENDOSCOPY PROCEDURES Fin al Result from Last 3 Months or Most Recently Relevant to Health Maintenance Insurance [facility] HMO/POS [employer] COVENTRY HMO/POS AETNA COVENTRY HMO/POS Care Teams Financial Aid Administrator Relationship Specialty Start Date End Date Ju Vaughn NP [address] [place] [id number] PCP - General Family Medicine 10/03/23
--- OUTSIDE RECORDS SUMMARY | 2024-10-23 13:26 | XMS_ITS | Clinical Summary ---
Author Organization [facility] Address [address] [place] [id number] Care Team Providers Care Associate Programmer Name Role Phone Ju Vaughn FRONT END MANAGER Primary Care Provider [phone] Allergies Active Allergy Reactions Criticality Noted Date Comments Dog Dander Rash Medium 04/11/2023 Dog Epithelium (Canis Lupus Familiaris) Hives 06/24/2023 Oxycodone-Acetaminophe n Itching Low 11/07/2020 Tape Other (see comment) 08/15/2017 Redness and blisters Medications loratadine (CLARITIN) 10 MG tablet Take 1 tablet (10 mg total) by mouth as needed for Allergies. Active albuterol sulfate HFA 108 (90 Base) MCG/ACT inhaler Inhale 2 puffs into the lungs as needed. 02/24/2023 Active atorvastatin (LIPITOR) 40 MG tablet Take 1 tablet (40 mg total) by mouth daily. 10/03/2023 Active famotidine (PEPCID) 20 MG tablet Take 1 tablet (20 mg total) by mouth daily. 01/28/2024 Active atomoxetine (STRATTERA) 40 MG capsuleIndicati ons:HASN'T STARTED TAKING YET Take 1 capsule (40 mg total) by mouth daily. Indications: HASN'T STARTED TAKING YET 03/29/2024 Active Active Problems Problem Noted Date Diagnosed Date GERD (gastroesophageal reflux disease) 4 Immunizations Immunization Administration Dates Next Due Tdap (Boostrix) 10/29/2023 Family History Medical History Relation Comments Cancer Father Arthritis Mother Asthma Mother Cancer Mother Depression Mother Relation Status Comments Father Mother Social History Tobacco Use Types Packs/Day Years Used Date Smoking Tobacco: Never Smokeless Tobacco: Never Tobacco Cessation:Counseling Given: Not Answered Alcohol Use Standard Drinks/Week Comments No 0 (1 standard drink = 0.6 oz pur e alcohol) B1300 Health Literacy Answer Date Recor ded How often do you need to hav e someone help you when you read instructions, pamphlets, or other written material from your doctor or pharmacy? Never 08/04/2023 [facility] Utilities Answer Date Recorded In the past 12 months has e [email or web address], gas, oil, or water [employer] threatened to shut off services in your home? No 08/04/2023 Humiliation, Afraid, Rape, and Kick questionnair e Answer Date Recorded Within the last year, have y ou been afraid of your partner or ex-partner? No 08/04/2023 Within the last year, have y ou been humiliated or emotionally abused in other ways by your partner or ex-partner? No Within the last year, have y ou been kicked, hit, slapped, or otherwise physically hurt by your partner or ex-partner? No 08/04/2023 Within the last year, have y ou been raped or forced to have any kind of sexual activity by your partner or ex-partner? No 08/04/2023 Overall Financial Resource Strain (CARDIA) Answe r Date Recorded How hard is it for you to pa y for the very basics like food, housing, medical care, and heating? Not hard at all 08/04/2023 [facility] [employer] Occupat ional Health - Occupational Stress Questionnaire Answer Date Recorded Do you feel stress - tense, restless, nervous, or anxious, or unable to sleep at night because your mind is troubled all the time - these days? Not at all 08/04/2023 Exercise Vital Sign Answer Date Recorde d On average, how many days pe r week do you engage in moderate to strenuous exercise (like a brisk walk)? 2 days 08/04/2023 On average, how many minutes do you engage in exercise at this level? 40 min 08/04/2023 Hunger Vital Sign Answer Date Recorded Within the past 12 months, y ou worried that your food would run out before you got the money to buy more. Never true 08/04/19 24 Within the past 12 months, t he food you bought just didn't last and you didn't have money to get more. Never true 08/04/2023 PRAPARE - Transportation Answer Date Re corded In the past 12 months, has l ack of transportation kept you from medical appointments or from getting medications? No 07/07 In the past 12 months, has l ack of transportation kept you from meetings, work, or from getting things needed for daily living? No 08/04/2023 Housing Stability Vital Sign Answer Mauricio e Recorded In the last 12 months, was t here a time when you were not able to pay the mortgage or rent on time? No 08/04/2023 In the past 12 months, how m any times have you moved where you were living? 1 08/04/2023 At any time in the past 12 m [facility], were you homeless or living in a nursing home (including now)? No 08/04/2023 Comments No Sex and Gender Information Value Date Recorded Sex Assigned at Female 04/27/2024 6:21 AM FOREST FIRE FIGHTERS DISPATCHER Legal Sex Female 6:48 PM CDT Gender Identity Not on file Sexual Orientation Not on file Last Filed Vital Signs Vital Sign Reading Time Taken Comments Blood Pressure 118/81 04/27/2024 8:20 AM FOREST FIRE FIGHTERS DISPATCHER Pulse 96 04/27/2024 7:54 AM FOREST FIRE FIGHTERS DISPATCHER Temperature 36.3 C (97.3 F) 04/27/2024 7:50 AM FOREST FIRE FIGHTERS DISPATCHER Respiratory Rate 15 04/27/2024 7:50 AM FOREST FIRE FIGHTERS DISPATCHER Oxygen Saturation 95% 04/27/2024 8:20 AM FOREST FIRE FIGHTERS DISPATCHER Inhaled Oxygen Concentration - - Weight 83.9 kg (185 lb) 04/13/2024 11:54 AM FOREST FIRE FIGHTERS DISPATCHER Height 175.3 cm (5' 9.02) 04/13/2024 11:[address] Body Mass Index 27.31 04/13/2024 11:54 AM FOREST FIRE FIGHTERS DISPATCHER Plan of Treatment Health Maintenance Due Date Last Done Comments Colorectal Cancer Screening Colonoscopy (10 Years) 1975 Annual Physical 12/08/1978 Hepatitis C 12/08/1993 Hepatitis B Vaccines (1 of 3 - 19+ 3-dose series) 12/08/1994 COVID-19 Vaccine ( season) 2023 02/08/2021, 06/19/2020, 05/29/2020 Mammogram Screening 12/15/2025 12/16/2023, 08/30/2022, 05/29/2021, Additional history exists DTaP, Tdap and Td Vaccines (3 - Td or Tdap) 10/28/2033 10/29/2023, 10/21/2022 Meningococcal B Vaccine Aged Out No l onger eligible based on patient's age to complete this topic Meningococcal Vaccine Aged Out No monie april eligible based on patient's age to complete this topic Pneumococcal Vaccine: Pediatrics (0 to 5 Years) and At-Risk Patients (6 to 49 Years) Aged Out No longer eligible based on patient's age to complete this topic RSV Immunizations Under 20 Months Aged Out No longer eligible based on patient's age to complete this topic Medical Devices Implanted Type Area Cow Trimmer Device Identifier Shelf Expiration Date Model / Serial / Lot Brown Cf Capsule Delivery Dev Implanted:Qty: 1 on 06/24/2023 by Figueroa Arteaga DO at [facility] N/A: Esophagus [id number] 07/24/2024 / [id number] / [id number] Capsule Ph Brown Calibration Free Reflux Delivery System - [id number] Implanted:Qty: 1 on 04/27/2024 by Figueroa Arteaga DO at [id number] / / Insurance AETNA Advance Directives * Full Code (Latest Code Status on File) Date Activated Date Inactivated Comments 08/04/2023 2:11 PM 08/05/2023 2:45 PM Care Teams Associate Programmer Relationship Specialty Start Date End Date Ju Vaughn, FRONT END MANAGER PCP - General NURSE PRACTITIONER 09/02/23
--- OUTSIDE RECORDS SUMMARY | 2024-10-23 13:26 | XMS_ITS | Clinical Summary ---
Author Organization [facility] Address [address] [place] [address] Care Team Providers Care Mold Capper Helper Name Role Phone Unavailable Primary Care Provider Unavailabl e Social History Tobacco Use Types Packs/Day Years Used Date Smoking Tobacco: Never Assessed Comments Unknown Sex and Gender Information Value Date Recorded Sex Assigned at Not on file Legal Sex Female 9:10 AM PATIENT SUPPORT ASSOCIATE Gender Identity Not on file Sexual Orientation Not on file Plan of Treatment Health Maintenance Due Date Last Done Comments Hepatitis C Virus (HCV) Screening 1975 TdaP Immunization 1975 Hepatitis B Immunization (1 of 3 - 19+ 3-dose series) 12/08/1994 Pap Smear 12/08/1996 Cervical Cancer Screening (CCS) 12/08/2005 HPV/Cotest 12/08/2005 Discussion re Starting/Frequ ency of Mammograms 2015 Colonoscopy 12/08/2020 Colorectal Cancer Screening 12/08/2020 Influenza Immunization (#1) 2023 SARS-COV-2 Immunization ( season) 2023 Respiratory Syncytial Virus (RSV) Immunization (Adult) (1 - 1-dose 75+ series) 12/08/2050 Meningococcal Immunization (ACWY) Aged Out No longer eligible based on patient's age to complete this topic Pneumococcal Immunization Combined Aged Out No longer eligible based on patient's age to complete this topic Rotavirus Immunization Aged Out No lo nger eligible based on patient's age to complete this topic Insurance [employer] on file
--- OUTSIDE RECORDS SUMMARY | 2024-10-23 13:26 | XMS_ITS | Clinical Summary ---
Author Organization [facility] Address [address] [place] [id number] Care Team Providers Care Field Human Resources Manager Name Role Phone Ju Vaughn NP Primary Care Provider [phone] Allergies Active Allergy Reactions Criticality Noted Date [...] 05/03/2024 Assessment & Plan (05/03/2024 9:55 AM ASSEMBLY MEMBER): Chronic, uncontrolled. Patient to begin Strattera 40 mg daily. Patient to call office if her focus and brain fog do not improve with Strattera use. Follow up in 6 months. Fatty liver 04/11/2023 Assessment & Plan (04/11/2023 8:17 AM ASSEMBLY MEMBER): Noted on ultrasound 09/2022. LFTs have been [...] 04/11/2023 Assessment & Plan (04/11/2023 8:19 AM ASSEMBLY MEMBER): Noted on ultrasound September 2022. Could be secondary to fatty liver. -we will order chronic liver workup to rule out other etiologies Attention deficit disorder 09/03/2022 Assessment & Plan (04/02/2024 9:09 AM ASSEMBLY MEMBER): Chronic, uncontrolled. Patient prescribed Strattera 40 mg daily. Patient provided with education on medication administration and potential side effects. Patient to follow up in one month to reassess ADD symptoms. Assessment & Plan (02/26/2023 10:10 AM ASSEMBLY MEMBER): Offered mental health eval Assessment & Plan (09/03/2022 9:22 AM CDT): Sending to Dr Rodriguez for eval RUQ pain 09/03/2022 Assessment & Plan (09/03/2022 9:31 AM CDT): Suspect gallbladder, will get RUQ us Family history of coronary artery disease 2021 Atypical chest pain 07/11/2021 Mixed hyperlipidemia 07/11/2021 Assessment & Plan (05/03/2024 9:53 AM ASSEMBLY MEMBER): Chronic, improving. Patient to continue on atorvastatin [...] 10/01/2022 Assessment & Plan (04/02/2024 9:07 AM ASSEMBLY MEMBER): Chronic, improving. Patient to continue on atorvastatin [...] 08/29/2021 Assessment & Plan (04/17/2023 9:01 AM ASSEMBLY MEMBER): Patient is to continue present medications, work [...] routine. Assessment & Plan (03/12/2022 2:22 PM ASSEMBLY MEMBER): Patient is to restart present medications, work [...] today Assessment & Plan (03/12/2022 2:22 PM ASSEMBLY MEMBER): We went through the differential diagnosis we [...] 01/20/2021 Assessment & Plan (05/03/2024 9:54 AM ASSEMBLY MEMBER): Chronic, improving with esophageal dilation, currently following with Dr. Chandler TOBAR. Assessment & Plan (09/27/2021 7:04 AM CDT): This is currently resolved will continue to follow Assessment & Plan (08/29/2021 9:46 AM CDT): This is improved she recently had an EGD I am going to change her PPI she will update me in 2 weeks Assessment & Plan (05/28/2021 7:38 AM ASSEMBLY MEMBER): This is currently controlled Assessment & Plan [...] 11/21/2020 Assessment & Plan (05/03/2024 9:54 AM ASSEMBLY MEMBER): Chronic, following with Dr. Chandler TOBAR. Currently taking famotidine 40 mg daily. Assessment & Plan (06/19/2021 3:05 PM CDT): Getting EGD Assessment & Plan (05/28/2021 7:38 AM ASSEMBLY MEMBER): As above Hoarseness 11/07/2020 Allergic rhinitis due to animal hair and dander 11/07/2020 Assessment & Plan (09/27/2021 7:03 AM CDT): Continue current medication Assessment & Plan (08/29/2021 9:46 AM CDT): Currently no medications will continue to follow Assessment & Plan (05/28/2021 7:38 AM ASSEMBLY MEMBER): Continue p.r.n. medication Adult BMI 27.0-27.9 kg/sq m 07/11/2020 Assessment & Plan (07/11/2020 8:59 AM CDT): Healthy diet and exercise Routine general medical exam ination at a health care facility 07/10/2020 Assessment & Plan (04/02/2024 9:11 AM ASSEMBLY MEMBER): CBC, CMP, lipid panel ordered. Mammogram last [...] 02/10/2017 Assessment & Plan (04/02/2024 9:07 AM ASSEMBLY MEMBER): Chronic, patient following with cardiology. Palpitations 02/10/2017 Overview (06/27/2020): this is periodic dn no issues, had full cardiac eval Assessment & Plan (04/17/2023 9:00 AM ASSEMBLY MEMBER): Currently controlled Assessment & Plan (02/26/2023 10:10 AM ASSEMBLY MEMBER): Off and on, had full cardiac work [...] meds Assessment & Plan (04/17/2023 9:00 AM ASSEMBLY MEMBER): Well controlled, no SI/HI, Assessment & Plan (02/26/2023 10:09 AM ASSEMBLY MEMBER): Controlled and appropriate for losing mother, no [...] problems Assessment & Plan (03/12/2022 2:22 PM ASSEMBLY MEMBER): This is currently well controlled off med Assessment & Plan (01/08/2021 9:57 AM CDT): Well controlled Assessment & Plan (07/11/2020 8:59 AM CDT): Controlled and mild GERD (gastroesophageal reflux disease) 7 Overview (06/27/2020): no longer on meds Assessment & Plan (04/02/2024 9:06 AM ASSEMBLY MEMBER): Chronic, patient following with GI currently taking famotidine 40 mg daily. Assessment & Plan (04/17/2023 8:57 AM ASSEMBLY MEMBER): Images from the original note were not [...] understanding Assessment & Plan (04/11/2023 8:18 AM ASSEMBLY MEMBER): Chronic GERD, continues to have heartburn in [...] fundoplication Assessment & Plan (02/26/2023 10:09 AM ASSEMBLY MEMBER): Not contyrolled, had EGD, will double nexium [...] meds Assessment & Plan (03/12/2022 2:22 PM ASSEMBLY MEMBER): Images from the original note were not [...] EGD Assessment & Plan (05/28/2021 7:38 AM ASSEMBLY MEMBER): This is controlled with diet and meds [...] 06/03/2023 Assessment & Plan (04/11/2023 8:19 AM ASSEMBLY MEMBER): Normal colonoscopy by Dr. Boo November 2022. -repeat colonoscopy November 2032 Tinea corporis 06/05/2021 03/29/2024 Assessment & Plan (06/05/2021 2:59 PM ASSEMBLY MEMBER): - likely ring worm - will tx [...] had immediate pain Post-operative state 10/07/2017 024 Encounters Date Type Department Care Team Description 10/14/2024 11:00 AM CDT Therapy [facility] Otolaryngology [address] [place] [address] Medical Office Building [address] [phone] Caro Mays, FARZANEH Hoarseness (Primary Dx) 09/21/2024 11:30 AM CDT Office Visit [facility] Cardiology [address] [place] [address] [phone] Yaniv Mckinney MD Palpitations (Primary Dx); Abnormal EKG; Mixed hyperlipidemia 09/15/2024 12:00 PM CDT Lab [facility] Office Building [address] [address] Palpitations; Mixed hyperlipidemia; Irregular heart beat; Abnormal EKG; Dyspnea on exertion 09/15/2024 Results Follow-Up [facility] Medical [facility] Cardiology [address] [place] [address] [phone] Yaniv Mckinney MD Hepatic function panel, Lipid panel, T4, free, Thyroid Function [place] 09/13/2024 10:00 AM CDT Therapy [facility] Otolaryngology [address] [place] [address] Advanced Medicine 11th [place] [address] [place] [address] Caro Mays, FARZANEH Hoarseness (Primary Dx) 08/13/2024 10:00 AM CDT Therapy [facility] Otolaryngology [address] [place] [address] Office Building [address] [phone] Caro Mays, KITCHEN WORK SUPERVISOR Hoarseness (Primary Dx) from Last 3 Months Immunizations Immunization Administration Dates Next Due Influenza, Quadrivalent, Spl it, Intramuscular 12/29/2018 Influenza, Quadrivalent, Spl it, Preservative Free, Intramuscular 01/08/2021 Influenza, Trivalent, IM (MDV) 03/22/2015 Influenza, Trivalent, Preser vative Free, Intramuscular 03/29/2024 Influenza, Unspecified 03/17/2023(Deferr ed: Patient decision),02/26/2023(Deferred: Patient decision),03/06/2022(Deferred: Patient decision),02/26/2022(Deferred: Patient decision),02/07/2022(Deferred: Patient decision),01/08/2021,03/23/2020,2018 Pfizer SARS-CoV-2 Monovalent Vaccination (12+ Yrs) PURPLE 02/11/2021,06/19/2020,05/29/2020 Tdap 10/29/2023,10/21/2022 Surgical History Surgery Date Site/Laterality Comments CYSTOCELE REPAIR HYSTERECTOMY 04/07/2012 - 04/06/2013 BREAST EXCISIONAL BIOPSY Left BLADDER REPAIR x3 RECTAL PROLAPSE REPAIR Medical History Medical History Date Comments Allergic rhinitis GERD (gastroesophageal reflux disease) Ear drainage Nasal drainage Sneezing Nasal congestion Hoarseness Palpitations when running Hyperlipidemia Family History Medical History Relation Name Comments Melanoma Father Asthma Mother COPD Mother Relation Name Status Comments Father (Age 53) Mother Social History Tobacco Use Types Packs/Day [...] on file Legal Sex Female 7:14 PM ASSEMBLY MEMBER Gender Identity Not on file Sexual Orientation Not on file Obstetrics History Para Term AB IAB SAB Ectopic Multiple Livin g Live Births 3 3 3 Date Outcome GA Total Labor Labor/2nd/3rd Weight Sex Type Anes PTL Alda A1 A5 Name Clin Term Term Term Last Filed Vital Signs Vital Sign Reading Time Taken Comments Blood Pressure 118/64 09/21/2024 12:29 PM CDT Pulse 79 09/21/2024 12:29 PM CDT Temperature 36.7 C (98 F) 06/08/2024 2:27 PM ASSEMBLY MEMBER Respiratory Rate 18 05/03/2024 8:39 AM ASSEMBLY MEMBER Oxygen Saturation 95% 06/17/2024 7:51 AM CDT Inhaled Oxygen Concentration - - Weight 82.8 kg (182 lb 9.6 oz) 09/21/2024 12:29 PM CDT Height 172.7 cm (5' 7.99) 09/21/2024 12:29 PM C DT Body Mass Index 27.77 09/21/2024 12:29 PM CDT Plan of Treatment Health Maintenance Due Date Last Done Comments Hepatitis B Screening 12/08/1993 Influenza Vaccine (#1) 2024 , 01/08/2021, 01/08/2021, Additional history exists Breast Cancer Screening-Mammogram 12/15/2024 12/16/2023, 08/30/2022, 08/30/2022, Additional history exists Depression Screening 03/29/2025 03/29/2024, 07/08/2022, 01/19/2021, Additional history exists Regular Well Visit/Exam 18-64 03/29/2025, 10/01/2022, 07/11/2020 Colon Cancer Screening-Colonoscopy 11/21/2032 11/21/2022 DTaP/Tdap/Td Vaccine (3 - Td or Tdap) 10/28/2033 10/29/2023, 10/21/2022 Covid-19 Vaccine Discontinued 02/11/2021, , 05/29/2020 Hepatitis C Screening Completed 04/11/2023, 017 Pneumococcal vaccine <65 Discontinued Medical Devices Implanted Type Area Numerical Control Machine Tool Operator Device Identifier Shelf Expiration Date Model / [...] HEPATITIS PANEL, ACUTE Routine 04/11/2023 9:10 AM ASSEMBLY MEMBER Hepatomegaly COLONOSCOPY 11/21/2022 7:58 AM CDT from Last 3 Months or Most Recently Relevant to Health Maintenance Results * Thyroid Function [place] (09/15/2024 12:08 PM CDT) TSH 2.50 0.30 - 4.20 mcIUnit/mL Comment:Testing performed by : [facility], [address] [place] [address]., [id number] Blood 09/15/2024 12:0 8 PM CDT 09/15/2024 12:48 PM CDT us Yaniv Mckinney MD LAB BLOOD ORDERABLES Final Result JESSICA [address] [facility] Department [place] [address] * T4, free (09/15/2024 12:08 PM CDT) Free T4 1.16 0.90 - 1.70 ng/dL Comment:Testing performed by : [address] [address] Blood 09/15/2024 12:0 8 PM CDT 09/15/2024 12:48 PM CDT Yaniv Mckinney MD LAB BLOOD ORDERABLES Final Result Performing Organization Address City/[facility]/ZIP Co de Phone Number JESSICA [address] [facility] [place] [address] * Hepatic function panel (09/15/2024 12:08 PM CDT) Bilirubin, total 0.6 0.1 - 1.2 mg/dL Comment:Testing performed by : [address] [address] Bilirubin, direct 0.1 0.1 - 0.3 mg/dL JESSICA Comment:Testing performed by : [address] [address] Protein, pl 7.1 6.5 - 8.5 g/dL JESSICA Comment:Testing performed by : [address] [address] Albumin 4.3 3.5 - 5.0 g/dL JESSICA Comment:Testing performed by : [address] [address] Alk phos 116 40 - 130 Units/L JESSICA Comment:Testing performed by : [address] [address] ALT 21 7 - 45 Units/L JESSICA Comment:Testing performed by : [address] [address] AST 25 10 - 45 Units/L JESSICA Comment:Testing performed by : [address] [address] Blood 09/15/2024 12:0 8 PM CDT 09/15/2024 12:48 PM CDT Yaniv Mckinney MD LAB BLOOD ORDERABLES Final Result JESSICA [address] [place] [address] * Lipid panel (09/15/2024 12:08 PM CDT) [facility] Signature Cholesterol 184 30 - 199 mg/dL Comment: [...] last revised on 2017. Testing performed by: [address] [address] Triglycerides 120 <=149 mg/dL JESSICA Comment: Interpretive Data Ages < [...] last revised on 2017. Testing performed by: [address] [address] HDL 58 >=40 mg/dL JESSICA Comment: Interpretive [...] last revised on 2017. Testing performed by: [facility], [address] [place] [address]., [id number] LDL, calculated 105 <=129 mg/dL JESSICA STONE [...] last revised on 2023. Testing performed by: [address] [address] Non-HDL Cholesterol 126 mg/dL JESSICA STONE Comment: Interpretive Data Ages [...] last revised on 2017. Testing performed by: [address] [address] Chol/HDL ratio 3 JESSICA STONE Comment:Testing performed by : [address] [address] Blood 09/15/2024 12:0 8 PM CDT 09/15/2024 12:48 PM CDT us Yaniv Mckinney MD LAB BLOOD ORDERABLES Final Result JESSICA MH [address] [facility] [place] [address] * Screening Mammogram Bilateral W Jono (12/16/2023 [...] age 40, based on guidelines of the [employer] (ACR Practice Parameter for the Performance of Screening and Diagnostic Mammography) and [employer]. For women [...] breast. There has been no suspicious change. us Ju S. Vaughn ASSEMBLER SURGICAL GARMENT IMG MAMMO PROCEDURES Final Res ult * Hepatitis panel, acute Blood (04/11/2023 9:10 AM ASSEMBLY MEMBER) Hep A IgM Nonreactive Nonreactive JESSICA Comment: [...] Nonreactive Nonreactive JESSICA Blood 04/11/2023 9:10 AM ASSEMBLY MEMBER 04/11/2023 9:22 AM ASSEMBLY MEMBER Rudy Brantley MD LAB MICROBIOLOGY - GENERAL ORDER FAVIOLA Final Result [facility] [address] [facility] [place] [address] * COLONOSCOPY (11/21/2022 7:58 AM CDT) Anatomical Region Laterality Modality Other Narrative Procedure Note Geovany Boo, - 11/21/2022 7:58 AM CDT [facility] GI ENDOSCOPY Patient Name: Olive Messer Procedure Date: 11/21/2022 7:58 AM Date of : 1975 Admit Type: Outpatient Age: 46 Gender: Female Attending MD: Geovany Boo D.O. Room: [facility] ENDOSCOPY ROOM 05 Note Status: Finalized Procedure: [...] medications. - [facility] colon[facility] in 10 [facility] Geovany Boo D.O. 11/21/2022 8:28:09 AM Number of Addenda: 0 Note Initiated On: 11/21/2022 7:58 AM Recognized by the [employer] for promoting quality in endoscopy Geovany Boo DO ENDOSCOPY PROCEDURES Fin al Result from Last 3 Months or Most Recently Relevant to Health Maintenance Insurance [id number] [employer] HMO/POS DoublePositive HMO/POS [employer] COVENTRY HMO/POS Care Teams Field Human Resources Manager Relationship Specialty Start Date End Date Ju Vaughn NP [address] [place] [phone] PCP - General Family Medicine 10/03/23
--- OUTSIDE RECORDS SUMMARY | 2024-10-23 13:26 | XMS_ITS | Data Portability ---
Author Organization [employer], [facility] Address [address] [place] [address] Assessment No assessment recorded. Plan of Treatment Reminders Order Date Submit Date Provider Last Modified By Organization Details Last Modified Time Details Appointments None recorded. Lab None recorded. Referral None recorded. Procedures None recorded. Surgeries None recorded. Imaging MAMMO, screening, digital, bilateral 2022 023 [facility], [address] [place] [address], [address], 16:11:01 Medication Orders None recorded. Patient TargetsNo targets recorded. Patient Instructions Encounter Date Encounter Id Patient Instructions Last Modified By Organization Details Last Modified Time 05/21/2022 [id number] Patient Health Questionnaire-9* [id number] Not available 06/25/2022 17:40:35 mammogram: about this test [place] [id number] Not available 06/25/2022 17:38:57 Reason for Referral None Reported. Results Created Date Observation Date Name Description Value Unit Range Abnormal Flag Note LastModifiedBy Organization Detail LastModifiedTime 08/31/19 23 08/30/2022 MAMMO , scree brea, digit al, bilat eral No observ ation record ed. [email or web address] [address], [address], 09/02/2022 15:26:00 Result Notes None recorded. Problems Name Problem SNOMED Code Status Onset Date Resolution Date Notes Provider Name and Address Organization Details Recorded Time Uterine cervix absent 599961046 Active 023 Vanessa singh, [employer] 3 14:22:44 Problem Notes None recorded. Procedures Surgical History Date Name Laterality Status Provider Name and Address Organization Details Recorded Time 08/31/19 Most Recent Mammogram completed Nelly Correa MD [address] [place], [address], [facility] [employer] IV 09/02/2022 15:25:48 04/07/19 15 repair of urinary bladder completed [facility] [employer] [facility] IV 05/21/2022 14:41:12 Total hysterectomy completed [facility] [employer] [facility] IV 05/21/2022 14:40:46 Imaging Results None recorded. Procedure Notes None recorded. Medical Equipment None Reported. Allergies Allergen ID Allergen Name Allergen Category Reaction Reaction Severity Criticality Documentation Date Start Date Code Code System Note Provider Name and Address Organization Details Recorded Time 941261 cat dander environme nt Not available Not available Not available 05/21/2022 [id number] UNK Cheri Robles [employer], [facility] [employer] IV 3 14:34:10 [id number] Canis lupus familiari s extract environme nt Not available Not available Not available 05/21/2022 78552 4 RxNorm Cheri Robles [facility], [facility] [employer] [facility] IV 14:34:10 Medications Name Sig Start Date Stop Date Status Note LastModified by Organization Details LastModified Time benzonatate 200 mg capsule 05/21 completed Not Available Not Available Not Available famotidine 40 mg tablet 05/21 completed Not Available Not Available Not Available prednisone 20 mg tablet 05/21 completed Not Available Not Available Not Available pantoprazole 40 mg tablet,delayed release 05/21 completed Not Available Not Available Not Available esomeprazole magnesium 40 mg capsule,delayed release 05/21 completed Not Available Not Available Not Available triamcinolone acetonide 0.1 % topical ointment 05/21 completed Not Available Not Available Not Available omeprazole 20 mg capsule,delayed release 05/21 completed Not Available Not Available Not Available methylprednisolo ne 4 mg tablets in a dose pack 05/21 completed Not Available Not Available Not Available albuterol sulfate HFA 90 mcg/actuation aerosol inhaler 05/21 completed Not Available Not Available Not Available fluticasone propionate 50 mcg/actuation nasal spray,suspension 05/21 completed Not Available Not Available Not Available clotrimazole 1 % topical cream 05/21 completed Not Available Not Available Not Available naproxen 500 mg tablet 05/21 completed Not Available Not Available Not Available amoxicillin 875 mg-potassium clavulanate 125 mg tablet 05/21 completed Not Available Not Available Not Available rosuvastatin 10 mg tablet 05/21 completed Not Available Not Available Not Available Vitals Date Recorded Body weight Body mass index (BMI) Body height Systolic And Diastolic Provider Name and Address Organization Details Last Updated DateTime 05/21/2022 86696.96 g 27.9 kg/m2 175.26 cm 116/72 mm[Hg] Cheri Robles [employer] 05/21/2022 14:44:33 Social History Question Answer Notes LastModified by [employer] Details LastModified Time Tobacco Smoking Status Never Smoker Cheri Robles [facility] [employer] IV 05/21/2022 14:33:59 How Many Years Have You Consumed Alcohol? 16 Information not available 05/21/2022 What Type Of Diet Are You Following? REGULAR Information not available 05/21/2022 How Many Children Do You Have? 3 Information not available 05/21/2022 What Is Your Relationship Status? Information not available 05/21/2022 Are You Sexually Active? Yes Information not available 05/21/2022 Sex: Unknown Functional Status Question Answer Note LastModified by [employer] Details LastModified Time What is your level of alcohol consumption? Occasional Information not available 05/21/2022 Do you or have you ever used e-cigarettes or vape? Never used electronic cigarettes Information not available 05/21/2022 What is your exercise level? Moderate Information not available 05/21/2022 Mental Status None recorded. Family History Relationship Description Onset Age of this Age Resolved Age Notes LastModified by Organization Details LastModified Time Mother Irritable bowel syndrome Not available 2022 14:33:45 Father Malignant neoplastic disease Not available 2022 14:33:45 Medical History Condition Response Arthritis Y Depression Y IBS (Irritable Bowel Syndrome) Y GERD (reflux) Y Gynecological History Statement/Question Response Flow Moderate Frequency of Cycle (Q days) 0 Date of LMP 03/07/2013 Most Recent Bone Density 04/07/100 Date of Last Pap Smear 04/07/100 Duration of Flow (days) Na Most Recent Mammogram 08/30/2022 Current Control Method Hysterectom y Age at Menarche 11 Obstetrics History GPAL:G 3 P 3 0 0 3 Type Value Full Term 3 Living 3 Total 3 Past Encounters Encounter ID Performer Location Encounter Start Date Encounter Closed Date Diagnosis/Indication Diagnosis SNOMED-CT Code Diagnosis ICD10 Code Diagnosis Note [id number] Nelly Correa MD [facility] [address] [place] [address] 05/21/2022 14:10:53 05/28/2022 15:06:49 Screening for malignant neoplasm of breast 559731968 Z12.39 Depression screening 171 986448 Z13.31 Gynecologi c examination 84728694 Z01.419 Health Concerns Section Related Observation LastModified by Organization Detai ls LastModified Time None Recorded Concern Status LastModified by Organization Details LastModified Time None Recorded Advance Directives Directive None Recorded Payers Insurance Date Sequence Insurance Name Policy Number Policy Davis Covered Member ID Davis Member ID Guarantor Name 06/26/2022 1 [employer] (POS II) [id number] Dada Messer [id number] Dada Messer Notes Date Note Type Note Provider Name and Address Organization Details Recorded Time 05/21/2022 text/html Olive is being seen today for a new patient- Was a former patient of Dr. Colon she has had a hysterectomy, cystocele, rectocele 2012. Many years later baldder repair and monarch sling were done. She had many repairs and patches over the years.Would like an order for a mammogram- [facility].Patient has had a bladder prolapse and has had multiple surgeries. She still has trouble leaking urine when she stands up. She tries not to bare down when having stools to avoid making the prolapse worse. She said she was a runner, lifted heavy objects and had three boys close together averaging 8 lbs. This may have caused it. Nelly Correa MD [address] [place], [address], [facility] 06/25/2022 17:39:40 OBGyn Episode Ob Episode Information Episode Created Date Number of Fetuses Patient Bloodtype Patient rh Status Prepregnancy Weight lbs Domestic Partner Domestic Partner Phone Father Name Senior Compensation Consultant Status 05/21/19 1 CLOSED Fetus Data First Name Last Name Admitted to NICU Weight (g) Sex Living Outcome Pediatric Complications Fetus ID Race Codes Race Delivery Type 3005.04 7 M Full Term [id number] Lui Calculation Initial Lui Date Initial Exam Date Initial Exam Provider Initial Ultrasound Date Last Menstrual Period Date Ultra Sound Weeks Gestation 0 Eighteen To Twenty Week Lui Update Ultra Sound Date Fundal Height At Umbil Quickening Date Ultra Sound Latest Weeks Gestation Final Lui Confirmed By Final Lui Confirmed Date Final Lui Date Ultra Sound Latest Days Gestation 0 0 Menstrual History Last Menstrual Date Menses Monthly On Bcp Conception Prior Menses Frequency Hcg Plus Date Menarche Onset Age Delivery Information Delivery Date Delivery Type Labor Anesthesia Weeks Gestation Incision Type Labor Labor Length Hrs Delivered By Post Complications Tubal Sterilization Discharge Date Comments 0 Discharge Information Feeding Method Contraceptive Method Maternal HG B and HCT Levels Ob Episode Information Episode Created Date Number of Fetuses Patient Bloodtype Patient rh Status Prepregnancy Weight lbs Domestic Partner Domestic Partner Phone Father Name Senior Compensation Consultant Status 05/21/19 1 CLOSED Fetus Data First Name Last Name Admitted to NICU Weight (g) Sex Living Outcome Pediatric Complications Fetus ID Race Codes Race Delivery Type 3713.55 7704 M Full Term [id number] Lui Calculation Initial Lui Date Initial Exam Date Initial Exam Provider Initial Ultrasound Date Last Menstrual Period Date Ultra Sound Weeks Gestation 0 Eighteen To Twenty Week Lui Update Ultra Sound Date Fundal Height At Umbil Quickening Date Ultra Sound Latest Weeks Gestation Final Lui Confirmed By Final Lui Confirmed Date Final Lui Date Ultra Sound Latest Days Gestation 0 0 Menstrual History Last Menstrual Date Menses Monthly On Bcp Conception Prior Menses Frequency Hcg Plus Date Menarche Onset Age Delivery Information Delivery Date Delivery Type Labor Anesthesia Weeks Gestation Incision Type Labor Labor Length Hrs Delivered By Post Complications Tubal Sterilization Discharge Date Comments 1 Discharge Information Feeding Method Contraceptive Method Maternal HG B and HCT Levels Ob Episode Information Episode Created Date Number of Fetuses Patient Bloodtype Patient rh Status Prepregnancy Weight lbs Domestic Partner Domestic Partner Phone Father Name Senior Compensation Consultant Status 02/14/20 23 1 CLOSED Fetus Data First Name Last Name Admitted to NICU Weight (g) Sex Living Outcome Pediatric Complications Fetus ID Race Codes Race Delivery Type 3912.23 1 M Full Term [id number] Lui Calculation Initial Lui Date Initial Exam Date Initial Exam Provider Initial Ultrasound Date Last Menstrual Period Date Ultra Sound Weeks Gestation 0 Eighteen To Twenty Week Lui Update Ultra Sound Date Fundal Height At Umbil Quickening Date Ultra Sound Latest Weeks Gestation Final Lui Confirmed By Final Lui Confirmed Date Final Lui Date Ultra Sound Latest Days Gestation 0 0 Menstrual History Last Menstrual Date Menses Monthly On Bcp Conception Prior Menses Frequency Hcg Plus Date Menarche Onset Age Delivery Information Delivery Date Delivery Type Labor Anesthesia Weeks Gestation Incision Type Labor Labor Length Hrs Delivered By Post Complications Tubal Sterilization Discharge Date Comments 6 Discharge Information Feeding Method Contraceptive Method Maternal HG B and HCT Levels
--- OUTSIDE RECORDS SUMMARY | 2024-10-23 13:26 | XMS_ITS | Clinical Summary ---
Author Organization [facility] [employer] Address [address] [place] [address] Care Team Providers Care Health Professor Name Role Phone Guzman Haywood PA-C Primary Care Provider [phone] Source Comments [facility],non-owned Affiliates and Associated Physician Practices is amultiple site organization consisting of ambulatory clinics and hospital sitesin [place], [place], [place] and [place]. This disclosure is being madepursuant to the Care Everywhere program and may not contain all information available regarding this patient. Last updated 17.[facility] [employer] Allergies Active Allergy Reactions Criticality Noted Date Comments Adhesive Sensitivity Other 08/15/2017 Redness and blisters Medications * Be aware that medications may not be up to date on this document. Alwaysverify current medications with the patient. ibuprofen (MOTRIN) 800 MG tablet Take 1 tablet by mouth every 6 hours 40 tablet 08/21/2017 Active estradiol (ESTRACE) 0.1 MG/GM vaginal cream 0 06/26/2017 Active estradiol (ESTRACE) 0.1 MG/GM vaginal cream Insert 1 g into the vagina 06/26/2017 Active Fexofenadine HCl (BETTINA PO) Active Active Problems Problem Noted Date Diagnosed Date Post-operative state 10/07/2017 Resolved Problems Problem Noted Date Diagnosed Date Resolved Date Female genital prolapse 08/20/2017 07/0 06/2017 Social History Tobacco Use Types Packs/Day Years Used Date Smoking Tobacco: Never Smokeless Tobacco: Never Alcohol Use Standard Drinks/Week Comments Yes 0 (1 standard drink = 0.6 oz pur e alcohol) rare Comments No Sex and Gender Information Value Date Recorded Sex Assigned at Not on file Legal Sex Female 5:39 AM OB GYN Gender Identity Not on file Sexual Orientation Not on file Last Filed Vital Signs Vital Sign Reading Time Taken Comments Blood Pressure 120/70 11/13/2020 10:32 AM CDT Pulse 86 08/21/2017 8:40 AM CDT Temperature 36.7 C (98 F) 08/21/2017 8:40 AM CDT Respiratory Rate 18 08/21/2017 8:40 AM CDT Oxygen Saturation 99% 08/21/2017 8:40 AM CDT Inhaled Oxygen Concentration - - Weight 83 kg (183 lb) 11/13/2020 10:32 AM CDT Height 172.7 cm (5' 8) 11/13/2020 10:32 AM CDT Body Mass Index 27.83 11/13/2020 10:32 AM CDT Plan of Treatment Health Maintenance Due Date Last Done Comments COLOGUARD (AGES 45-75) - COL ON CA SCREENING 1975 COLON MONITORING 1975 COLONOSCOPY - COLON CA SCREENING 1975 CT COLONOGRAPHY - COLON CA SCREENING 1975 Colorectal Cancer Screening 1975 FIT - COLON CA SCREENING 1975 FLEX SIG - COLON CA SCREENING 1975 LIPID TESTING 1975 MAMMOGRAM 1975 HIV SCREENING 12/08/1990 HEPATITIS C SCREENING 12/04/1993 DTAP/TDAP/TD VACCINES (1 - Tdap) 12/08/1994 HEPATITIS B VACCINE (1 of 3 - 19+ 3-dose series) 12/08/1994 SCREENING FOR DIABETES 04/25/2020 COVID-19 VACCINE (3 - 2023-2 5 season) 2023 06/19/2020, 05/29/2020 DEPRESSION SCREENING 04/07/2024 INFLUENZA VACCINE (#1) 2024 , 12/29/2018, 03/22/2015 ZOSTER VACCINE (1 of 2) 12/08/2025 HIB VACCINE Aged Out No longer eligi ble based on patient's age to complete this topic HPV VACCINE Aged Out No longer eligi ble based on patient's age to complete this topic MENINGOCOCCAL (Group B) VACCINE SHARED DECISION-MAKING Aged Out No longer eligible based on patient's age to complete this topic MENINGOCOCCAL GROUPS A/C/Y/W VACCINE Aged Out No longer eligible b ased on patient's age to complete this topic PNEUMOCOCCAL VACCINE Aged Out No long er eligible based on patient's age to complete this topic Medical Devices Implanted Type Area Barbering Instructor Device Identifier Shelf Expiration Date Model / Serial / Lot Xenform 6 C [id number] Implanted:Qty: 1 on 08/20/2017 by Jaun Bajwa MD at [facility] [id number] 11/05/2019 [id number] Insurance [employer] Advance Directives * Full Code (Latest Code Status on File) Date Activated Date Inactivated Comments 08/20/2017 5:19 PM 08/21/2017 3:12 PM Care Teams Health Professor Relationship Specialty Start Date End Date Guzman Haywood PA-C PCP - General 07/31/17
--- OUTSIDE RECORDS SUMMARY | 2024-10-23 13:26 | XMS_ITS | Clinical Summary ---
Author Organization [facility] Address [address] Noel: Carlos Prelude [place] [address] Care Team Providers Care Knockout Worker Name Role Phone Unavailable Primary Care Provider Unavailabl e Allergies No known active allergies Medications famotidine (PEPCID) 40 mg tablet TAKE ONE TABLET BY MOUTH NIGHTLY 30 Tablet 3 12/04/2021 12:55 PM CDT 2 Active esomeprazole (NexIUM) 40 mg Capsule, Delayed Release(E.C.) Take 1 capsule (40 mg total) by mouth daily before breakfast 90 Capsule 4 12/04/2021 12:55 PM CDT 2 Active naproxen (NAPROSYN) 500 mg tablet Take 1 tablet (oral) 2 times per day as needed for 15 days. Take on a full stomach or with an antacid. 30 Tablet 10/05/2021 4:50 PM CDT 2 Active albuterol sulfate 90 mcg/Actuation inhaler Inhale 2 puffs by mouth every 6 (six) hours as needed for Wheezing. 8.5 Gram 12/26/2021 5:52 PM CDT 2 Active benzonatate (TESSALON) 200 mg capsule Take 1 capsule (200 mg total) by mouth 3 (three) times daily as needed for Cough. 20 Capsule 12/26/2021 5:52 PM CDT 2 Active fluticasone propionate (FLONASE) 50 mcg/spray [place], Suspension nasal inhaler Administer one spray into each nostril once daily for 14 days 16 Gram 02/07/2022 11:49 AM CDT 2 Active cyclobenzaprine (FLEXERIL) 10 mg tablet Take 1 tablet (10 mg total) by mouth 3 (three) times a day as needed for muscle spasms 30 Tablet 07/08/2022 10:21 AM CDT 3 Active esomeprazole (NexIUM) 40 mg Capsule, Delayed Release(E.C.) Take 1 capsule (40 mg total) by mouth daily before breakfast 90 Capsule 4 04/21/2023 4:18 PM BRAZER CONTROLLED ATMOSPHERIC FURNACE 3 Active sucralfate (CARAFATE) 1 gram tablet Take 1 tablet by mouth 4 (four) times a day 120 Tablet 11 02/26/2023 10:37 AM BRAZER CONTROLLED ATMOSPHERIC FURNACE 3 Active albuterol sulfate HFA 90 mcg/actuation aerosol inhaler Take 2 Puffs by inhalation every 6 hours as needed for wheezing or shortness of breath. 8.5 Gram 02/24/2023 10:54 AM BRAZER CONTROLLED ATMOSPHERIC FURNACE 3 Active azithromycin (ZITHROMAX) 250 mg tablet Take 2 tablets by mouth today, then 1 tablet daily for 4 days. 6 Tablet 02/24/2023 10:54 AM BRAZER CONTROLLED ATMOSPHERIC FURNACE 3 Active sucralfate (CARAFATE) 1 gram tablet Crush 1 Tablet (1 Gram) and mix with water into a slurry then take by mouth four times a day 120 Tablet 3 01/31/2024 1:10 PM CDT 4 Active pantoprazole (PROTONIX) 40 mg Tablet, Delayed Release (E.C.) Take 1 Tablet (40 mg) by mouth daily. 30 Tablet 6 10/01/2023 10:04 AM CDT 4 Active famotidine (PEPCID) 20 mg tablet Take 1 Tablet (20 mg) by mouth daily. 30 Tablet 3 01/31/2024 1:10 PM CDT 4 Active atorvastatin (LIPITOR) 80 mg tablet Take 1 tablet (80 mg total) by mouth nightly 90 Tablet 3 10/20/2024 1:12 PM CDT 5 Active Social History Tobacco Use Types Packs/Day Years Used Date Smoking Tobacco: Never Assessed Comments Unknown Sex and Gender Information Value Date Recorded Sex Assigned at Not on file Legal Sex Female 3:24 PM CDT Gender Identity Not on file Sexual Orientation Not on file Plan of Treatment Health Maintenance Due Date Last Done Comments DTAP/TDAP/TD VACCINES (1 - Tdap) 12/08/1994 HEPATITIS B VACCINES (1 of 3 - 19+ 3-dose series) 06/1994 HPV/Cotest (21-29) 12/08/1996 CERVICAL CANCER SCREENING 12/08/2005 HPV/Cotest (30-65) 12/08/2005 PAP SMEAR 12/08/2005 BREAST CANCER SCREENING 2015 COLORECTAL SCREENING 12/08/2020 Colorectal Cancer Screening 12/08/2020 FIT-DNA Q 3 years 12/08/2020 FIT/FOBT Q 1 year 12/08/2020 Flex Sig/CT Colonography Q 5 years 12/08/2020 INFLUENZA VACCINE (#1) 2024 Insurance RX [employer] (INTERNAL) [facility]
--- OUTSIDE RECORDS SUMMARY | 2024-10-23 13:26 | XMS_ITS | Encounter Summary ---
Author Organization [facility] Address [address] [place] [address] Care Team Providers Care Collision Estimator Name Role Phone Guzman Haywood PA-C Primary Care Provider [phone] Encounter Details Date Type Department Care Team (Late st Contact Info) Description 04/06/2018 Lab Requisition [facility] Care D[facility] Lab [address] [place] [address] Guzman Haywood PA-C [facility] [address] Social History Tobacco Use Types Packs/Day Years Used Date Smoking Tobacco: Never Smokeless Tobacco: Never Alcohol Use Standard Drinks/Week Comments Yes 0 (1 standard drink = 0.6 oz pur e alcohol) rare Comments No Sex and Gender Information Value Date Recorded Sex Assigned at Not on file Legal Sex Female 5:39 AM SSRS REPORT DEVELOPER Gender Identity Not on file Sexual Orientation Not on file documented as of this encounter Plan of Treatment Not on file documented as of this encounter Procedures Procedure Name Priority Date/Time Associated Diagnosis Comments DERMATOPATHOLOGY Routine 04/03/2018 12:0 0 AM SSRS REPORT DEVELOPER documented in this encounter Results * DERMATOPATHOLOGY (04/03/2018 12:00 AM SSRS REPORT DEVELOPER) Case Report Dermatopathology Report Case: [id number] Authorizing Provider: Guzman Haywood PA-C Collected: 04/03/2018 12:00 AM Pathologist: Caro Wetzel MD Received: 04/06/2018 08:15 AM Specimens: A) - Skin, left lateral chest B) - Skin, left bicep 12:42 PM [facility] DERMATOPATHOLOGY LABORATORY Final Diagnosis Specimen A. SKIN, left lateral chest: JUNCTIONAL MELANOCYTIC NEVUS (D22.5) NOT PRESENT AT SAMPLED MARGIN Specimen B. SKIN, left bicep: COMPOUND MELANOCYTIC NEVUS (D22.62) NOT PRESENT AT SAMPLED MARGIN 12:42 PM [facility] DERMATOPATHOLOGY LABORATORY at [address] [facility] Clinical History A-B: Dysplastic nevi. Check margins. 12:42 PM [facility] DERMATOPATHOLOGY [facility]ORATORY Gross Description Specimen A: Received is one formalin filled container labeled with the patients name and designated left lat chest. The specimen consists of a [id number] excision of skin. The margin is inked green. The specimen is bisected lengthwise and submitted in 1 cassette. Jar 0. Specimen B: Received is one formalin filled container labeled with the patients name and designated left bicep. The specimen consists of a [id number] excision of skin. The margin is inked green. The specimen is bisected lengthwise and submitted in 1 cassette. Jar 0. 12:42 PM [facility] DERMATOPATHOLOGY [facility]ORATORY Microscopic Description Specimen A. SKIN, left lateral chest: There are nests of melanocytes at the dermal-epidermal junction. This lesion is not present at the sampled margin of the specimen. Specimen B. SKIN, left bicep: There are nests of melanocytes at the dermal-epidermal junction and within the dermis. This lesion is not present at the sampled margin of the specimen. 12:42 PM [facility] DERMATOPATHOLOGY [facility]ORATORY Disclaimer An external and internal positive and negative controls are appropriate for the histochemical, immunohistochemical and immunofluorescence stain(s) in this case (if any), except where stated explicitly. The performance characteristics of the stain(s) cited in this report were developed and its performance characteristic determined by the Dermatopathology Laboratory at [facility]. These tests need not be, and therefore are not, approved by the [place] Food and Drug Administration. The tests are used for clinical purposes. Billing Codes Specimen Charges Stain Charges 51868 14074 1 1 12:42 PM SSRS REPORT DEVELOPER DERMATOPATHOLOGY LABORATORY Embedded Images 12:42 PM [facility] REPORT DEVELOPER DERMATOPATHOLOGY LABORATORY Pathology/Cytology TISSUE SPECIMEN FROM SKIN / Unknown 04/03/2018 04/06/2018 8:15 AM SSRS REPORT DEVELOPER Miscellaneous samples (specimen) TISSUE SPECIMEN FROM SKIN / Unknown 04/03/2018 04/06/2018 8:15 AM SSRS REPORT DEVELOPER Guzman Haywood PA-C LAB - PATHOLOGY/CYTOLOGY ORDERAB LES Final Result DERMATOPATHOLOGY LABORATORY [facility] - Department of Dermatology [address] [place] [address], [address] Floor Lab [address] [phone] documented in this encounter Visit Diagnoses Not on filedocumented in this encounter Care Teams Collision Estimator Relationship Specialty Start Date End Date Guzman Haywood PA-C PCP - General 07/31/17 documented as of this encounter
--- OUTSIDE RECORDS SUMMARY | 2024-10-23 13:26 | XMS_ITS | Encounter Summary ---
Author Organization [facility] Facility Care Team Providers Care Plant Safety Leader Name Role Phone Guzman Haywood Primary Care Provider [phone] Ju Vaughn NP Primary Care Provider [phone] Encounter Details Date Type Department Care Team (Latest Contact Info) Description 01/18/2017 Orders Only [facility] CLINCONV ProviderMiguel MD [address] [place], [place] [id number] Social History Tobacco Use Types Packs/Day Years Used Date Smoking Tobacco: Never Assessed Comments Unknown Sex and Gender Information Value Date Recorded Sex Assigned at Not on file Legal Sex Female 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 Historical Provider [facility] Final Result documented in this encounter Visit Diagnoses Not on filedocumented in this encounter Additional Health Concerns Infection Onset Date Last Indicated Resolved Time COVID: Suspected 01/19/2021 01/22/2021 01/22/2021 6:41 PM CDT COVID: Suspected 03/08/2021 03/08/2021 03/08/2021 9:44 PM TOP LIFT NAILER COVID: Suspected 03/28/2021 03/28/2021 03/29/2021 2:08 AM TOP LIFT NAILER COVID: Suspected 04/19/2021 04/19/2021 04/20/2021 5:27 AM TOP LIFT NAILER COVID: Suspected 02/24/2023 02/24/2023 02/24/2023 4:59 PM TOP LIFT NAILER documented as of this encounter Care Teams Plant Safety Leader Relationship Specialty Start Date End Date Guzman Haywood PA PCP - General Family Medicine 12/22/18 10/02/23 Ju Vaughn NP [address] [place] [address] PCP - General Family Medicine 10/03/23 documented as of this encounter
--- OUTSIDE RECORDS SUMMARY | 2024-10-23 13:26 | XMS_ITS | Encounter Summary ---
Author Organization [facility] Healthcare Address [address] [place] [address] Care Team Providers Care Taxation Economist Name Role Phone Ju Vaughn NP Primary Care Provider [phone] Encounter Details Date Type Department Care Team (Late st Contact Info) Description 09/15/2024 Results Follow-Up [facility] Medical Group Cardiology [address] [facility] [address] [address] [place] [address] [place] [address] Hepatic function panel, Lipid panel, T4, free, Thyroid Function [place] Social History Tobacco Use Types Packs/Day Years [...] on file 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
--- OUTSIDE RECORDS SUMMARY | 2024-10-23 13:27 | XMS_ITS | Encounter Summary ---
Author Organization [facility] Facility Care Team Providers Care Polygraph Examiner Name Role Phone Guzman Haywood Primary Care Provider [phone] Ju Vaughn NP Primary Care Provider [phone] Encounter Details Date Type Department Care Team (Latest Contact Info) Description 12/25/2016 Orders Only [facility] CLINCONV ProviderMiguel MD [address] [place], [place] [phone] Social History Tobacco Use Types Packs/Day Years Used Date Smoking Tobacco: Never Assessed Comments Unknown Sex and Gender Information Value Date Recorded Sex Assigned at Not on file Legal Sex Female 7:14 PM OUTDOOR EMERGENCY CARE TECHNICIAN Gender Identity Not on file Sexual Orientation Not on file documented as of this encounter Plan of Treatment Not on file documented as of this encounter Procedures Procedure Name Priority Date/Time Associated Diagnosis Comments CARDIOLOGY REPORT 12/25/2016 12: 00 AM CDT documented in this encounter Results * CARDIOLOGY REPORT (12/25/2016 12:00 AM CDT) Anatomical Region Laterality Modality Other Narrative 12/25/2016 12:00 AM CDT Ordered by an unspecified provider. Historical Provider [facility] Final Result documented in this encounter Visit Diagnoses Not on filedocumented in this encounter Additional Health Concerns Infection Onset Date Last Indicated Resolved Time COVID: Suspected 01/19/2021 01/22/2021 01/22/2021 6:41 PM CDT COVID: Suspected 03/08/2021 03/08/2021 03/08/2021 9:44 PM OUTDOOR EMERGENCY CARE TECHNICIAN COVID: Suspected 03/28/2021 03/28/2021 03/29/2021 2:08 AM OUTDOOR EMERGENCY CARE TECHNICIAN COVID: Suspected 04/19/2021 04/19/2021 04/20/2021 5:27 AM OUTDOOR EMERGENCY CARE TECHNICIAN COVID: Suspected 02/24/2023 02/24/2023 02/24/2023 4:59 PM OUTDOOR EMERGENCY CARE TECHNICIAN documented as of this encounter Care Teams Polygraph Examiner Relationship Specialty Start Date End Date Guzman Haywood PA PCP - General Family Medicine 12/22/18 10/02/23 Ju Vaughn NP [address] [place] [address] PCP - General Family Medicine 10/03/23 documented as of this encounter
--- OUTSIDE RECORDS SUMMARY | 2024-10-23 13:27 | XMS_ITS | Encounter Summary ---
Author Organization [facility]/Health system Facility Care Team Providers Care Real Estate Clerk Name Role Phone Guzman Haywood Primary Care Provider [phone] Ju Vaughn NP Primary Care Provider [phone] Encounter Details Date Type Department Care Team (Latest Contact Info) Description 08/20/2017 Orders Only [facility] CLINCONV ProviderMiguel MD [address] [place] [address] Social History Tobacco Use Types Packs/Day Years Used Date Smoking Tobacco: Never Assessed Comments Unknown Sex and Gender Information Value Date Recorded Sex Assigned at Not on file Legal Sex Female 7:14 PM LAYBOY TENDER Gender Identity Not on file Sexual Orientation Not on file documented as of this encounter Plan of Treatment Not on file documented as of this encounter Procedures Procedure Name Priority Date/Time Associated Diagnosis Comments SCAN - LABS 08/20/2017 12:00 AM CDT documented in this encounter Results * SCAN - LABS (08/20/2017 12:00 AM CDT) Narrative 08/20/2017 12:00 AM CDT Ordered by an unspecified provider. Historical Provider Final Res ult documented in this encounter Visit Diagnoses Not on filedocumented in this encounter Additional Health Concerns Infection Onset Date Last Indicated Resolved Time COVID: Suspected 01/19/2021 01/22/2021 01/22/2021 6:41 PM CDT COVID: Suspected 03/08/2021 03/08/202103/08/2021 9:44 PM LAYBOY TENDER COVID: Suspected 03/28/2021 03/28/2021 03/29/2021 2:08 AM LAYBOY TENDER COVID: Suspected 04/19/2021 04/19/2021 04/20/2021 5:27 AM LAYBOY TENDER COVID: Suspected 02/24/2023 02/24/2023 02/24/2023 4:59 PM LAYBOY TENDER documented as of this encounter Care Teams Real Estate Clerk Relationship Specialty Start Date End Date Guzman Haywood PA PCP - General Family Medicine 12/22/18 10/02/23 Ju Vaughn NP [address] [place] [address] PCP - General Family Medicine 10/03/23 documented as of this encounter
--- OUTSIDE RECORDS SUMMARY | 2024-10-23 13:27 | XMS_ITS | Encounter Summary ---
Author Organization [facility] Facility Care Team Providers Care Airport Manager Name Role Phone Guzman Haywood Primary Care Provider [phone] uJ Vaughn NP Primary Care Provider [phone] Encounter Details Date Type Department Care Team (Latest Contact Info) Description 11/29/2016 Orders Only [facility] CLINCONV ProviderMiguel MD [address] [place], [place] [phone] Social History Tobacco Use Types Packs/Day Years Used Date Smoking Tobacco: Never Assessed Comments Unknown Sex and Gender Information Value Date Recorded Sex Assigned at Not on file Legal Sex Female 7:14 PM DRUPAL DEVELOPER Gender Identity Not on file Sexual Orientation Not on file documented as of this encounter Plan of Treatment Not on file documented as of this encounter Procedures Procedure Name Priority Date/Time Associated Diagnosis Comments CARDIOLOGY REPORT 11/29/2016 12: 00 AM CDT documented in this encounter Results * CARDIOLOGY REPORT (11/29/2016 12:00 AM CDT) Anatomical Region Laterality Modality Other Narrative 11/29/2016 12:00 AM CDT Ordered by an unspecified provider. Historical Provider [facility] Final Result documented in this encounter Visit Diagnoses Not on filedocumented in this encounter Additional Health Concerns Infection Onset Date Last Indicated Resolved Time COVID: Suspected 01/19/2021 01/22/2021 01/22/2021 6:41 PM CDT COVID: Suspected 03/08/2021 03/08/2021 03/08/2021 9:44 PM DRUPAL DEVELOPER COVID: Suspected 03/28/2021 03/28/2021 03/29/2021 2:08 AM DRUPAL DEVELOPER COVID: Suspected 04/19/2021 04/19/2021 04/20/2021 5:27 AM DRUPAL DEVELOPER COVID: Suspected 02/24/2023 02/24/2023 02/24/2023 4:59 PM DRUPAL DEVELOPER documented as of this encounter Care Teams Airport Manager Relationship Specialty Start Date End Date Guzman Haywood PA PCP - General Family Medicine 12/22/18 10/02/23 Ju Vaughn NP [address] [place] [address] PCP - General Family Medicine 10/03/23 documented as of this encounter
--- OUTSIDE RECORDS SUMMARY | 2024-10-23 13:27 | XMS_ITS | Encounter Summary ---
Author Organization [facility] Facility Care Team Providers Care Physician Internist Name Role Phone Guzman Haywood Primary Care Provider [phone] Ju Vaughn NP Primary Care Provider [phone] Encounter Details Date Type Department Care Team (Latest Contact Info) Description 04/03/2018 Orders Only [facility] CLINCONV ProviderMiguel MD [address] [place], [place] [id number] Social History Tobacco Use Types Packs/Day Years Used Date Smoking Tobacco: Never Assessed Comments Unknown Sex and Gender Information Value Date Recorded Sex Assigned at Not on file Legal Sex Female 7:14 PM MONORAIL HELPER Gender Identity Not on file Sexual Orientation Not on file documented as of this encounter Plan of Treatment Not on file documented as of this encounter Procedures Procedure Name Priority Date/Time Associated Diagnosis Comments SCAN - PATHOLOGY 04/09/2018 12:0 0 AM MONORAIL HELPER documented in this encounter Results * SCAN - PATHOLOGY (04/09/2018 12:00 AM MONORAIL HELPER) Narrative 04/09/2018 12:00 AM MONORAIL HELPER Ordered by an unspecified provider. Historical Provider Final Res ult documented in this encounter Visit Diagnoses Not on filedocumented in this encounter Additional Health Concerns Infection Onset Date Last Indicated Resolved Time COVID: Suspected 01/19/2021 01/22/2021 01/22/2021 6:41 PM CDT COVID: Suspected 03/08/2021 03/08/2021 03/08/2021 9:44 PM MONORAIL HELPER COVID: Suspected 03/28/2021 03/28/2021 03/29/2021 2:08 AM MONORAIL HELPER COVID: Suspected 04/19/2021 04/19/2021 04/20/2021 5:27 AM MONORAIL HELPER COVID: Suspected 02/24/2023 02/24/2023 02/24/2023 4:59 PM MONORAIL HELPER documented as of this encounter Care Teams Physician Internist Relationship Specialty Start Date End Date Guzman Haywood PA PCP - General Family Medicine 12/22/18 10/02/23 Ju Vaughn NP [address] [place] [address] PCP - General Family Medicine 10/03/23 documented as of this encounter
--- OUTSIDE RECORDS SUMMARY | 2024-10-23 13:27 | XMS_ITS | Encounter Summary ---
Author Organization [facility] Facility Care Team Providers Care Wellness Nurse Rn Name Role Phone Guzman Haywood Primary Care Provider [phone] Ju Vaughn NP Primary Care Provider [phone] Encounter Details Date Type Department Care Team (Latest Contact Info) Description 12/26/2016 Orders Only [facility] CLINCONV ProviderMiugel MD [address] [place], [place] [phone] Social History Tobacco Use Types Packs/Day Years Used Date Smoking Tobacco: Never Assessed Comments Unknown Sex and Gender Information Value Date Recorded Sex Assigned at Not on file Legal Sex Female 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 Historical Provider [facility] Final Result documented in this encounter Visit Diagnoses Not on filedocumented in this encounter Additional Health Concerns Infection Onset Date Last Indicated Resolved Time COVID: Suspected 01/19/2021 01/22/2021 01/22/2021 6:41 PM CDT COVID: Suspected 03/08/2021 03/08/2021 03/08/2021 9:44 PM BULK LOADER COVID: Suspected 03/28/2021 03/28/2021 03/29/2021 2:08 AM BULK LOADER COVID: Suspected 04/19/2021 04/19/2021 04/20/2021 5:27 AM BULK LOADER COVID: Suspected 02/24/2023 02/24/2023 02/24/2023 4:59 PM BULK LOADER documented as of this encounter Care Teams Wellness Nurse Rn Relationship Specialty Start Date End Date uGzman Haywood PA PCP - General Family Medicine 12/22/18 10/02/23 Ju Vaughn NP [address] [place] [address] PCP - General Family Medicine 10/03/23 documented as of this encounter
--- OUTSIDE RECORDS SUMMARY | 2024-10-23 13:27 | XMS_ITS | Encounter Summary ---
Author Organization [facility] Facility Care Team Providers Care Contact Lens Blocker Name Role Phone Guzman Haywood Primary Care Provider [phone] Ju Vaughn NP Primary Care Provider [phone] Encounter Details Date Type Department Care Team (Latest Contact Info) Description 01/13/2017 Orders Only [facility] CLINCONV ProviderMiguel MD [address] [place], [place] [phone] Social History Tobacco Use Types Packs/Day Years Used Date Smoking Tobacco: Never Assessed Comments Unknown Sex and Gender Information Value Date Recorded Sex Assigned at Not on file Legal Sex Female 7:14 PM CHIEF SECURITY OFFICER Gender Identity Not on file Sexual Orientation Not on file documented as of this encounter Plan of Treatment Not on file documented as of this encounter Procedures Procedure Name Priority Date/Time Associated Diagnosis Comments CARDIOLOGY REPORT 01/14/2017 12: 00 AM CDT documented in this encounter Results * CARDIOLOGY REPORT (01/14/2017 12:00 AM CDT) Anatomical Region Laterality Modality Other Narrative 01/14/2017 12:00 AM CDT Ordered by an unspecified provider. Historical Provider [facility] Final Result documented in this encounter Visit Diagnoses Not on filedocumented in this encounter Additional Health Concerns Infection Onset Date Last Indicated Resolved Time COVID: Suspected 01/19/2021 01/22/2021 01/22/2021 6:41 PM CDT COVID: Suspected 03/08/2021 03/08/2021 03/08/2021 9:44 PM CHIEF SECURITY OFFICER COVID: Suspected 03/28/2021 03/28/2021 03/29/2021 2:08 AM CHIEF SECURITY OFFICER COVID: Suspected 04/19/2021 04/19/2021 04/20/2021 5:27 AM CHIEF SECURITY OFFICER COVID: Suspected 02/24/2023 02/24/2023 02/24/2023 4:59 PM CHIEF SECURITY OFFICER documented as of this encounter Care Teams Contact Lens Blocker Relationship Specialty Start Date End Date Guzman Haywood PA PCP - General Family Medicine 12/22/18 10/02/23 Ju Vaughn NP [address] [place] [address] PCP - General Family Medicine 10/03/23 documented as of this encounter
--- OUTSIDE RECORDS SUMMARY | 2024-10-23 13:27 | XMS_ITS | Encounter Summary ---
Author Organization [facility] Facility Care Team Providers Care Solder Cream Maker Name Role Phone Guzman Haywood Primary Care Provider Ju Vaughn NP Primary Care Provider [phone] Encounter Details Date Type Department Care Team (Latest Contact Info) Description 01/12/2017 Orders Only [facility] CLINCONV ProviderMiguel MD [address] [place], [place] [phone] Social History Tobacco Use Types Packs/Day Years Used Date Smoking Tobacco: Never Assessed Comments Unknown Sex and Gender Information Value Date Recorded Sex Assigned at Not on file Legal Sex Female 7:14 PM FILTER CLOTH MAKER Gender Identity Not on file Sexual Orientation Not on file documented as of this encounter Plan of Treatment Not on file documented as of this encounter Procedures Procedure Name Priority Date/Time Associated Diagnosis Comments CARDIOLOGY REPORT 01/12/2017 12: 00 AM CDT documented in this encounter Results * CARDIOLOGY REPORT (01/12/2017 12:00 AM CDT) Anatomical Region Laterality Modality Other Narrative 01/12/2017 12:00 AM CDT Ordered by an unspecified provider. Historical Provider [facility] C[facility]AC [facility] Final Result documented in this encounter Visit Diagnoses Not on filedocumented in this encounter Additional Health Concerns Infection Onset Date Last Indicated Resolved Time COVID: Suspected 01/19/2021 01/22/2021 01/22/2021 6:41 PM CDT COVID: Suspected 03/08/2021 03/08/2021 03/08/2021 9:44 PM FILTER CLOTH MAKER COVID: Suspected 03/28/2021 03/28/2021 03/29/2021 2:08 AM FILTER CLOTH MAKER COVID: Suspected 04/19/2021 04/19/2021 04/20/2021 5:27 AM FILTER CLOTH MAKER COVID: Suspected 02/24/2023 02/24/2023 02/24/2023 4:59 PM FILTER CLOTH MAKER documented as of this encounter Care Teams Solder Cream Maker Relationship Specialty Start Date End Date Guzman Haywood PA PCP - General Family Medicine 12/22/18 10/02/23 Ju Vaughn NP [address] [place] [address] PCP - General Family Medicine 10/03/23 documented as of this encounter
--- OUTSIDE RECORDS SUMMARY | 2024-10-23 13:27 | XMS_ITS | Encounter Summary ---
Author Organization [facility] Facility Care Team Providers Care Hepatology Physician Name Role Phone Guzman Haywood Primary Care Provider [phone] Ju Vaughn NP Primary Care Provider Encounter Details Date Type Department Care Team (Latest Contact Info) Description 12/31/2016 Orders Only [facility] CLINCONV ProviderMiguel MD [address] [place], [place] [phone] Social History Tobacco Use Types Packs/Day Years Used Date Smoking Tobacco: Never Assessed Comments Unknown Sex and Gender Information Value Date Recorded Sex Assigned at Not on file Legal Sex Female 7:14 PM VAULT CASHIER Gender Identity Not on file Sexual Orientation Not on file documented as of this encounter Plan of Treatment Not on file documented as of this encounter Procedures Procedure Name Priority Date/Time Associated Diagnosis Comments CARDIOLOGY REPORT 12/31/2016 12: 00 AM CDT documented in this encounter Results * CARDIOLOGY REPORT (12/31/2016 12:00 AM CDT) Anatomical Region Laterality Modality Other Narrative 12/31/2016 12:00 AM CDT Ordered by an unspecified provider. Historical Provider CV CARDIAC SERVICES RE [facility] Final Result documented in this encounter Visit Diagnoses Not on filedocumented in this encounter Additional Health Concerns Infection Onset Date Last Indicated Resolved Time COVID: Suspected 01/19/2021 01/22/2021 01/22/2021 6:41 PM CDT COVID: Suspected 03/08/2021 03/08/2021 03/08/2021 9:44 PM VAULT CASHIER COVID: Suspected 03/28/2021 03/28/2021 03/29/2021 2:08 AM VAULT CASHIER COVID: Suspected 04/19/2021 04/19/2021 04/20/2021 5:27 AM VAULT CASHIER COVID: Suspected 02/24/2023 02/24/2023 02/24/2023 4:59 PM VAULT CASHIER documented as of this encounter Care Teams Hepatology Physician Relationship Specialty Start Date End Date Guzman Haywood PA PCP - General Family Medicine 12/22/18 10/02/23 Ju Vaughn NP [address] [place] [address] PCP - General Family Medicine 10/03/23 documented as of this encounter
--- OUTSIDE RECORDS SUMMARY | 2024-10-23 13:27 | XMS_ITS | Encounter Summary ---
Author Organization [facility] Facility Care Team Providers Care Jig Grinder Name Role Phone Guzman Haywood Primary Care Provider [phone] Ju Vaughn NP Primary Care Provider [phone] Encounter Details Date Type Department Care Team (Latest Contact Info) Description 01/08/2017 Orders Only [facility] CLINCONV ProviderMiguel MD [address] [place], [place] [phone] Social History Tobacco Use Types Packs/Day Years Used Date Smoking Tobacco: Never Assessed Comments Unknown Sex and Gender Information Value Date Recorded Sex Assigned at Not on file Legal Sex Female 7:14 PM SERVICE ADVISOR Gender Identity Not on file Sexual Orientation Not on file documented as of this encounter Plan of Treatment Not on file documented as of this encounter Procedures Procedure Name Priority Date/Time Associated Diagnosis Comments CARDIOLOGY REPORT 01/08/2017 12: 00 AM CDT documented in this encounter Results * CARDIOLOGY REPORT (01/08/2017 12:00 AM CDT) Anatomical Region Laterality Modality Other Narrative 01/08/2017 12:00 AM CDT Ordered by an unspecified provider. Historical Provider CV CARDIAC SERVICES RE [facility] Final Result documented in this encounter Visit Diagnoses Not on filedocumented in this encounter Additional Health Concerns Infection Onset Date Last Indicated Resolved Time COVID: Suspected 01/19/2021 01/22/2021 01/22/2021 6:41 PM CDT COVID: Suspected 03/08/2021 03/08/2021 03/08/2021 9:44 PM SERVICE ADVISOR COVID: Suspected 03/28/2021 03/28/2021 03/29/2021 2:08 AM SERVICE ADVISOR COVID: Suspected 04/19/2021 04/19/2021 04/20/2021 5:27 AM SERVICE ADVISOR COVID: Suspected 02/24/2023 02/24/2023 02/24/2023 4:59 PM SERVICE ADVISOR documented as of this encounter Care Teams Jig Grinder Relationship Specialty Start Date End Date Guzman Haywood PA PCP - General Family Medicine 12/22/18 10/02/23 Ju Vaughn NP [address] [place] [address] PCP - General Family Medicine 10/03/23 documented as of this encounter
--- OUTSIDE RECORDS SUMMARY | 2024-10-23 13:27 | XMS_ITS | Continuity of Care Document ---
Author Organization [facility] [place] Address [address] [place] [address] [address] [place] [address] Phone Care Team Providers Care Document Analyst Name Role Phone Jenny Villagomez PT Unavailable Unavailable Procedures Procedure Date Progress Note Therapeutic Exercise Therapeutic Activities Neuromuscular Re-Ed Hot or Cold Pack Mechanical Traction Therapeutic Exercise Therapeutic Activities Neuromuscular Re-Ed Hot or Cold Pack Mechanical Traction Therapeutic Exercise Therapeutic Activities Neuromuscular Re-Ed Hot or Cold Pack Mechanical Traction Therapeutic Exercise Therapeutic Activities Neuromuscular Re-Ed Hot or Cold Pack Mechanical Traction Therapeutic Exercise Therapeutic Activities Neuromuscular Re-Ed Hot or Cold Pack Mechanical Traction Therapeutic Exercise Therapeutic Activities Neuromuscular Re-Ed Hot or Cold Pack Mechanical Traction Therapeutic Exercise Therapeutic Activities Neuromuscular Re-Ed Hot or Cold Pack Mechanical Traction Therapeutic Exercise Therapeutic Activities Neuromuscular Re-Ed Hot or Cold Pack Mechanical Traction Therapeutic Exercise Therapeutic Activities Neuromuscular Re-Ed Manual Therapy Hot or Cold Pack PT Evaluation Low Complexity Therapeutic Exercise Manual Therapy THERAPEUTIC EXERCISES NEUROMUSCULAR RE-ED MANUAL THERAPY HOT/COLD PACK ELECTRIC STIMULATION UNATT THERAPEUTIC EXERCISES NEUROMUSCULAR RE-ED MANUAL THERAPY HOT/COLD PACK ELECTRIC STIMULATION UNATT THERAPEUTIC EXERCISES NEUROMUSCULAR RE-ED MANUAL THERAPY HOT/COLD PACK THERAPEUTIC EXERCISES NEUROMUSCULAR RE-ED MANUAL THERAPY HOT/COLD PACK ELECTRIC STIMULATION UNATT THERAPEUTIC EXERCISES NEUROMUSCULAR RE-ED MANUAL THERAPY HOT/COLD PACK ELECTRIC STIMULATION UNATT THERAPEUTIC EXERCISES MANUAL THERAPY HOT/COLD PACK THERAPEUTIC EXERCISES MANUAL THERAPY HOT/COLD PACK ELECTRIC STIMULATION UNATT THERAPEUTIC EXERCISES MANUAL THERAPY HOT/COLD PACK ELECTRIC STIMULATION UNATT THERAPEUTIC EXERCISES MANUAL THERAPY HOT/COLD PACK ELECTRIC STIMULATION UNATT THERAPEUTIC EXERCISES MANUAL THERAPY HOT/COLD PACK ELECTRIC STIMULATION UNATT THERAPEUTIC EXERCISES MANUAL THERAPY HOT/COLD PACK ELECTRIC STIMULATION UNATT PT EVALUATION THERAPEUTIC EXERCISES MANUAL THERAPY HOT/COLD PACK ELECTRIC STIMULATION UNATT Advance Directives Directive Yes / No Effective Date File Name No Information Encounters Encounter Description Practice Location Reason(s) For Visit Diagnoses Date Provider Providers Copied on Encounter [facility] [address] [address], [place], [place], [id number], tel:[phone] [place] No Information Sep-2 1-201 7 Threlkeld Jenny. . Referring Provider: [address], [place], [address]. tel:[phone] [place] [address] [facility] Demarco [address] [place] [address], [id number], tel:[phone] [place] No Information Sep-1 9-201 7 Threlkeld Jenny. . Referring Provider: [address], [place], [address]. tel:[phone] [place] [address] [place] [address], [place], [place], [address], tel:[phone] [place] No Information Sep-1 4-201 7 Threlkeld Jenny. . Referring Provider: [address], [place], [address]. tel:[phone] [place] [address] [place], [place] [address], [id number], tel:[phone] [place] No Information Sep-1 2-201 7 Threlkeld Jenny. . Referring Provider: [address], [place], [address]. tel:[phone] [place] [address] [place], [place] [address]mohinder [facility], [place], [place], [id number], tel:[phone] [place] No Information Sep-0 7-201 7 Threlkeld Jenny. . Referring Provider: [address], [place], [address]. tel:[phone] [place] [address], [address] [facility], [place], [place], [address], tel:[phone] [place] No Information Sep-0 5-201 7 Threlkeld Jenny. . Referring Provider: [address], [place], [address]. tel:[phone] [place], [place] [id number] [address] [address], [place], [place], [address], [place] tel:[phone] [place] No Information Nov-2 8-201 7 Davon Palomo. [address] [place] [address], [address], [place], [place], [facility], [place]. tel:[phone] Referring Provider: [address], [place], [address]. tel:[phone] [place], [place] [id number] [address], [id number], [place] tel:[phone] [place] No Information Nov-2 4-201 7 Threlkeld Jenny. . Referring Provider: [address], [place], [address]. tel:[phone] [place], [place] [id number] [address] [address], [place], [place], [address], tel:[phone] [place] No Information Nov-2 2-201 7 Threlkeld Jenny. . Referring Provider: [address], [place], [address]. tel:[phone] [place], [place] [id number] [address] [address], [place], [place], [address], [place] tel:[phone] [place] CervicalgiaAbnor mal postureOther specified dorsopathies, cervical regionOth symptoms and signs involving the musculoskeletal system Aug-1 7-201 7 Threlkeld Jenny. . Referring Provider: [address], [place], [address]. tel:[phone], [place], [place], [address], tel:[phone] [place] No Information May-2 9-201 3 Mcgrath-Erick s Keegan. [address] [place] [address], [address], [place], [place], [facility], [place]. tel:[phone], [place], [place], [address], tel:[phone] [place] No Information May-2 4-201 3 Mcgrath-Erick s Keegan. [address] [place] [address], [address], [place], [place], [facility], [place]. tel:[phone] [facility] [address], [place], [place], [address], tel:[phone] [place] No Information May-2 0-201 3 Mcgrath-Erick s Keegan. [address] [place] [address], [address], [place], [facility], [place]. tel:[phone], [place], [place], [address], tel:[phone] [place] No Information May-1 7-201 3 Mcgrath-Erick s Keegan. [address] [place] [address], [address], [place], [facility], [place]. tel:[phone], [place], [place], [address], tel:[phone] [place] No Information May-1 3-201 3 Mcgrath-Erick s Keegan. [address] [place] [address], [address], [place], [facility], [place]. tel:[phone] [facility] [address], [place], [place], [address], tel:[phone] [place] No Information May-1 0-201 3 Mcgrath-Erick s Keegan. [address] [place] [address], [address], [place], [address], [place]. tel:[phone], [place], [place], [address], [place] tel:[phone] [place] No Information May-0 6-201 3 Mcgrath-Erick s Keegan. [address] [place] [address], [address], [place], [address], [place]. tel:[phone], [place], [place], [address], [place] tel:[phone] [place] No Information May-0 3-201 3 Mcgrath-Erick s Keegan. [address] [place] [address], [address], [place], [address], [place]. tel:[phone], [place], [address], [place] tel:[phone] [place] No Information Apr-2 9-201 3 Mcgrath-Erick s Keegan. [address] [place] [address], [address], [place], [address], [place]. tel:[phone] [facility] [address], [place], [place], [address], [place] tel:[phone] [place] No Information Apr-2 6-201 3 Mcgrath-Erick s Keegan. [address] [place] [address], [address], [place], [address], [place]. tel:[phone], [place], [place], [address], [place] tel:[phone] [place] No Information Apr-2 2-201 3 Mcgrath-Erick s Keegan. [address] [place] [address], [address], [place], [address], [place]. tel:[phone] [facility] [address], [place], [place], [address], [place] tel:[phone] [place] Cervicalgia Apr-1 9-201 3 Mcgrath-Erick s Keegan. [address] [facility], [address], [place], [address], [place]. tel:[phone] Family History Family Member Type Diagnosis Age At Onset No Information Payers Payer name Insurance type Covered libertarian ID Authormarisolmyra minaya(s) [facility] [id number] [employer] CI [id number] Social History Type Description Quantity Date Captured Comments Sex Female Smoking Status No Information Chief Complaint And Reason For Visit No Information Reason For Referral Reason For Referral No Information History Of Present Illness Encounter Date Complaint History Of Prese nt Illness No Information Functional Status Date Functional Assessmen t No Information Instructions Date Instruction Additional Infor mation No Information Assessments Type Assessment Date No Information Patient Care Teams Name Effective Dates (start - stop) Status Members No Information
--- OUTSIDE RECORDS SUMMARY | 2024-10-23 13:28 | XMS_ITS | Continuity of Care Document ---
Author Organization [facility] [place] Address [address] [place] [address] [address] [place] [address] Phone Care Team Providers Care Loss Prevention Agent Name Role Phone Jenny Villagomez PT Unavailable [...] Diagnoses Date Provider Providers Copied on Encounter [facility] [address] [address], [place], [place], [id number], tel:[phone] [place] No Information Sep-2 1-201 7 Threlkeld Jenny. . Referring Provider: [address], [place], [address]. tel:[phone] [place] [address] [facility] Demarco [address] [place] [address], [id number], tel:[phone] [place] No Information Sep-1 9-201 7 Threlkeld Jenny. . Referring Provider: [address], [place], [address]. tel:[phone] [place] [address] [place] [address], [place], [place], [address], tel:[phone] [place] No Information Sep-1 4-201 7 Threlkeld Jenny. . Referring Provider: [address], [place], [address]. tel:[phone] [place] [address] [place], [place] [address], [id number], tel:[phone] [place] No Information Sep-1 2-201 7 Threlkeld Jenny. . Referring Provider: [address], [place], [address]. tel:[phone] [place] [address] [place], [place] [address]mohinder [facility], [place], [place], [address], tel:[phone] [place] No Information Sep-0 7-201 7 Threlkeld Jenny. . Referring Provider: [address], [place], [address]. tel:[phone] [place] [address], [address] [facility], [place], [place], [address], tel:[phone] [place] No Information Sep-0 5-201 7 Threlkeld Jenny. . Referring Provider: [address], [place], [address]. tel:[phone] [place], [place] [id number] [address], [place], [place], [address], [place] tel:[phone] [place] No Information Nov-2 8-201 7 Davon Palomo. [address] [place] [address], [address], [place], [place], [facility], [place]. tel:[phone] Referring Provider: [address], [place], [address]. tel:[phone] [place], [place] [id number] [address], [id number], [place] tel:[phone] [place] No Information Nov-2 4-201 7 Threlkeld Jenny. . Referring Provider: [address], [place], [address]. tel:[phone] [place] [id number] [address], [place], [place], [address], tel:[phone] [place] No Information Nov-2 2-201 7 Threlkeld Jenny. . Referring Provider: [address], [place], [address]. tel:[phone] [place], [place] [id number] [address] [address], [place], [place], [address], [place] tel:[phone] [place] CervicalgiaAbnor mal postureOther specified dorsopathies, cervical regionOth symptoms and signs involving the musculoskeletal system Aug-1 7-201 7 Threlkeld Jenny. . Referring Provider: [address], [place], [address]. tel:[phone], [place], [place], [address], tel:[phone] [place] No Information May-2 9-201 3 Mcgrath-Erick s Keegan. [address] [place] [address], [address], [place], [place], [facility], [place]. tel:[phone], [place], [place], [address], tel:[phone] [place] No Information May-2 4-201 3 Mcgrath-Erick s Keegan. [address] [place] [address], [address], [place], [facility], [place]. tel:[phone] [facility] [address], [place], [place], [address], tel:[phone] [place] No Information May-2 0-201 3 Mcgrath-Erick s Keegan. [address] [place] [address], [address], [place], [facility], [place]. tel:[phone], [place], [place], [address], tel:[phone] [place] No Information May-1 7-201 3 Mcgrath-Erick s Keegan. [address] [place] [address], [address], [place], [facility], [place]. tel:[phone], [place], [place], [address], tel:[phone] [place] No Information May-1 3-201 3 Mcgrath-Erick s Keegan. [address] [place] [address], [address], [place], [facility], [place]. tel:[phone] [facility] [address], [place], [place], [address], tel:[phone] [place] No Information May-1 0-201 3 Mcgrath-Erick s Keegan. [address] [place] [address], [address], [place], [address], [place]. tel:[phone], [place], [place], [address], [place] tel:[phone] [place] No Information May-0 6-201 3 Mcgrath-Erick s Keegan. [address] [place] [address], [address], [place], [address], [place]. tel:[phone], [place], [place], [address], [place] tel:[phone] [place] No Information May-0 3-201 3 Mcgrath-Erick s Keegan. [address] [place] [address], [address], [place], [address], [place]. tel:[phone], [place], [place], [address], [place] tel:[phone] [place] No Information Apr-2 9-201 3 Mcgrath-Erick s Keegan. [address] [place] [address], [address], [place], [address], [place]. tel:[phone] [facility] [address], [place], [place], [address], [place] tel:[phone] [place] No Information Apr-2 6-201 3 Mcgrath-Erick s Keegan. [address] [place] [address], [address], [place], [address], [place]. tel:[phone], [place], [place], [address], [place] tel:[phone] [place] No Information Apr-2 2-201 3 Mcgrath-Erick s Keegan. [address] [place] [address], [address], [place], [address], [place]. tel:[phone] [facility] [address], [place], [place], [address], [place] tel:[phone] [place] Cervicalgia Apr-1 9-201 3 Mcgrath-Erick s Keegan. [address] [facility], [address], [place], [address], [place]. tel:[phone] Family History Family Member Type Diagnosis Age At Onset No Information Payers Payer name Insurance type Covered green party ID Authormarisolmyra minaya(s) [facility] [id number] [employer] CI [id number] Social History Type Description Quantity Date Captured [...]
[2024-10-23 13:39] VITALS: BP 115/79; PULSE 74; RESP 16; TEMP 37; O2SAT 97
== END 2024-10-23 13:55 | disposition home or self-care (01) ==
PROVIDERS: Emergency Provider Nurse Practitioner Family; PCP Nurse Practitioner
DX: S90.32XA Contusion of left foot, initial encounter (principal); W22.09XA Striking against other stationary object, initial encounter
CPT/HCPCS: 73630; 99213; G0463